=== PATIENT | male | born 1985 | race Caucasian/White ===

== ENCOUNTER 2025-01-07 15:06 | Emergency (ER) | payer OTHER, SELFPAY ==
[2025-01-07 15:11] VITALS: BP 120/85; PULSE 82; TEMP 36.9; O2SAT 98; BMI 21.8
--- NOTE | 2025-01-07 15:18 | ECG_ITS ---
[facility] Test Date: 2025-01-07 Pat Name: SUDHAKAR ACUÑA Department: Room: - Gender: Male Customer Complaint Service Supervisor: : 1985 Requested By: [id number] Order Number: [id number] Reading MD: CLAUDE BIANCHI Measurements Intervals [place] Rate: 75 P: -30107 RI: 190 QRS: 90 QRSD: 98 T: 71 QT: 318 QTc: 413 Interpretive Statements SINUS RHYTHM 51405 Nonspecific Twave abnormality, probably digitalis effect 0102 ARTIFACT PRESENT Normal ECG No previous ECG available for comparison Electronically Signed On 01-09-2025 9:50:40 EDT by CLAUDE BIANCHI
--- NOTE | 2025-01-07 15:19 | ED.GENADUL1 ---
HPI HPI - General Adult General Chief complaint: Chest Pain Stated complaint: CHEST PAIN Time Seen by Provider: 01/07/25 15:10 Source: patient Mode of arrival: walk-in Limitations: no limitations History of Present Illness HPI narrative: 39-year-old male presents for chest pain. It started about 45 minutes ago when he was sitting in class. He is staying at a drug treatment center and has been there for 45 days and has been clean for 45 days. Its on the left side of his chest and goes to the left shoulder but does not radiate anywhere else. No back pain or shortness of breath. No trauma or fever. Related Data Home Medications ?Medication ?Instructions ?Recorded ?Confirmed atorvastatin 10 mg tablet 10 mg PO HS 01/07/25 01/07/25 buprenorphine 128 mg/0.36 mL 128 mg subcut Q28D 01/07/25 01/07/25 solution,ext.rel.subcutaneous syringe (Brixadi Monthly) buspirone 15 mg tablet 7.5 mg PO BID 01/07/25 01/07/25 cariprazine 3 mg capsule (Vraylar) 3 mg PO DAILY 01/07/25 01/07/25 gabapentin 300 mg capsule 300 mg PO TID 01/07/25 01/07/25 melatonin 10 mg capsule 10 mg PO HS PRN sleep 01/07/25 01/07/25 olanzapine 5 mg tablet 5 mg PO BID PRN agotation 01/07/25 01/07/25 trazodone 100 mg tablet 100 mg PO HS 01/07/25 01/07/25 Allergies Allergy/AdvReac Type Severity Reaction Status Date / Time Penicillins Allergy Severe Rash Verified 01/07/25 15:19 haloperidol (From Haldol) AdvReac Severe muscle Verified 01/07/25 15:19 stiffness Opioid HPI Opioid Management Most Recent Opioid Data: Last Pain Scale 6 Today, 15:33 Last ED Pain Assessment Today, 15:33 Review of Systems ROS Narrative A ten point review of systems is negative except as noted above. PFSH PFSH Social History Little interest or pleasure in doing things: not at all Feeling down, depressed, or hopeless: not at all Exam Narrative Exam Narrative: Nurses note and vital signs reviewed and patient is not hypoxic. General: The patient appears well and in no apparent distress. Patient is resting comfortably on cart. Skin: Warm, dry, no pallor noted. There is no rash noted. Head: Normocephalic, atraumatic Eye: Normal conjunctiva, no drainage Ears, Nose, Mouth, and Throat: oral mucosa is moist. Nares patent. Cardiovascular: Regular Rate and Rhythm, not tachycardic. Palpation of his left chest wall seems to reproduce his symptoms. Respiratory: Patient is in no distress, no accessory muscle use, lungs are clear to auscultation, no wheezing, rales or rhonchi. Breath sounds are equal bilaterally Back: non-tender GI: Soft and nontender Musculoskeletal: The patient has no evidence of calf tenderness, no pitting edema, symmetrical pulses noted bilaterally Neurological: A&O, normal speech Psychiatric: Cooperative Constitutional Vital Signs, click to edit/add: Last Vital Signs Temp 98.4 F 01/07/25 15:11 Pulse 82 01/07/25 15:11 Resp 16 01/07/25 15:11 BP 120/85 01/07/25 15:11 Pulse Ox 99 01/07/25 15:33 O2 Del Method Room Air 01/07/25 15:33 Course Vital Signs Vital signs: Vital Signs Temperature 98.4 F 01/07/25 15:11 Pulse Rate 82 01/07/25 15:11 Respiratory Rate 16 01/07/25 15:11 Blood Pressure 120/85 01/07/25 15:11 Pulse Oximetry 98 01/07/25 15:11 Oxygen Delivery Method Room Air 01/07/25 15:11 Temperature 98.4 F 01/07/25 15:11 Pulse Rate 82 01/07/25 15:11 Respiratory Rate 16 01/07/25 15:11 Blood Pressure 120/85 01/07/25 15:11 Pulse Oximetry 99 01/07/25 15:33 Oxygen Delivery Method Room Air 01/07/25 15:33 Medical Decision Making MDM Narrative Medical decision making narrative: His workup is negative including 2 sets of troponin and D-dimer. Chest x-ray shows no evidence of pneumothorax or pneumonia. My clinical impression is that this is chest wall pain. He is being discharged. Treatment diagnosis and follow-up were discussed with the patient. Differential Diagnosis Differential Diagnosis: Myocardial infarction, PE, pneumothorax, chest wall pain Lab Data Lab results reviewed: Yes I reviewed the patient's lab results Labs: Lab Results 07/16/25 07/16/25 Range/Units 15:25 16:12 WBC 7.6 (4.0-11.0) 10^3/uL RBC 4.13 L (4.70-6.10) 10^6/uL Hgb 12.5 L (14.0-18.0) g/dL Hct 37.0 L (42.0-54.0) % MCV 89.6 (80.0-94.0) fL MCH 30.3 (25.9-34.0) pg MCHC 33.8 (29.9-35.2) g/dL RDW 12.1 (11.0-15.0) % Plt Count 262 (150-450) 10^3/uL MPV 9.1 L (9.5-13.5) fL Neut % (Auto) 75.8 H (43.0-75.0) % Lymph % (Auto) 15.2 L (20.5-60.0) % [place] % (Auto) 6.7 (1.7-12.0) % Eos % (Auto) 1.2 (0.9-7.0) % Baso % (Auto) 0.8 (0.2-2.0) % Neut # (Auto) 5.8 (1.4-6.5) 10^3/uL Lymph # (Auto) 1.2 (1.2-3.8) 10^3/uL [place] # (Auto) 0.5 (0.3-0.8) 10^3/uL Eos # (Auto) 0.1 (0.0-0.7) 10^3/uL Baso # (Auto) 0.1 (0.0-0.1) 10^3/uL Abs Immat Gran (auto) 0.02 (0.00-0.03) 10^3/uL Imm/Tot Granulo (auto) 0.3 (0.0-0.5) % D-Dimer 0.38 (<=0.59) mg/L FEU Sodium 143 (136-145) mmol/L Potassium 3.8 (3.5-5.1) mmol/L Chloride 103 (98-107) mmol/L Carbon Dioxide 29.5 (21.0-32.0) mmol/L Anion Gap 14.3 BUN 11.0 (7.0-18.0) mg/dL Creatinine 0.81 (0.70-1.30) mg/dL Est GFR ( Amer) >60 (>=60 mL/min/1.73m^2) Est GFR (Non-Af Amer) >60 (>=60 mL/min/1.73m^2) BUN/Creatinine Ratio 13.6 Glucose 108 H (74-106) mg/dL Calcium 9.4 (8.5-10.1) mg/dL Troponin I High Sens <4.0 L 4.6 (4.0-76.1) pg/mL Imaging Data Chest x-ray: Radiologist's impression: ITS Impressions Chest X-Ray 01/07/25 15:42 IMPRESSION: No acute cardiopulmonary pathology. Impression dictated by: Collin Vásquez M.D. 01/07/2025 3:53 PM Dictation Location: [employer] Electronically authenticated by: [id number] Y Date: 01/07/2025 15:53 ECG Data Attestation: I personally reviewed and interpreted this ECG as follows: (EKG on my interpretation shows large amount of artifact because of his deep brain stimulator.) Discharge Plan Discharge Chief Complaint: Chest Pain Clinical Impression: Chest pain Patient Disposition: Home, Self-Care Time of Disposition Decision: 16:48 Condition: Good Mode of Transportation: Private Vehicle Prescriptions / Home Meds: No Action atorvastatin 10 mg tablet 10 mg PO HS Brixadi 128 mg/0.36 mL solution, extended rel syringe 128 mg SUBCUT Q28D buspirone 15 mg tablet 7.5 mg PO BID gabapentin 300 mg capsule 300 mg PO TID olanzapine 5 mg tablet 5 mg PO BID PRN (Reason: agotation) Vraylar 3 mg capsule 3 mg PO DAILY trazodone 100 mg tablet 100 mg PO HS melatonin 10 mg capsule 10 mg PO HS PRN (Reason: sleep) Print Language: Vietnamese Instructions: Chest Pain (ED) Referrals: Physician,Non-Staff, MD [Primary Care Provider] - 1 week
--- OUTSIDE RECORDS SUMMARY | 2025-01-07 15:20 | XMS_ITS | Clinical Summary ---
Author Organization [facility] Address [address] [place], [place] [id number] Care Team Providers Care Core Drier Name Role Phone Unavailable Primary Care Provider Unavailabl e Allergies Active Allergy Reactions Criticality Noted Date Comments Haloperidol Other: See Comments 02/28/2017 Muscle stiffness Penicillins Rash 02/28/2017 Medications traZODone (DESYREL) 150 mg tablet Take 1 tablet by mouth daily at bedtime. 7 Active buPROPion SR (ZYBAN SR; WELLBUTRIN SR) 150 mg 12 hr tabletIndication s:Tourette's syndrome,Depress ion, unspecified depression type Take 1 tablet by mouth twice daily. 180 tablet 2 9 Active gabapentin (NEURONTIN) 300 mg capsuleIndicatio ns:Essential myoclonus Take 3 capsules by mouth three times daily for 180 days. 270 capsule 3 0 Active Additional Information Patient not taking.Reason: Other, Reported on 05/11/2020 buprenorphine-na lOXone SL (SUBOXONE) 8-2 mg subl Dissolve 1 tablet under the tongue once daily. 0 Active levETIRAcetam (KEPPRA) 1,000 mg tablet Take 1 tablet by mouth twice daily. 60 tablet 2 0 Active benzocaine-menth ol (CEPACOL SORE THROAT, PAUL-MEN,) 15-2.6 mg lozg lozenge Take 1 Lozenge by mouth every 3 hours as needed. 16 Lozenge 3 Active buPROPion XL (WELLBUTRIN XL) 150 mg 24 hr tablet Take 1 tablet by mouth once daily. 30 tablet 4 Active gabapentin (NEURONTIN) 600 mg tablet Take 2 tablets by mouth three times a day for 30 days. 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 Q1H while awake, C&DB - multimodal pain management, APMS consult - CXR PRN for change in respiratory status 01/24 - PTX more evident on interval CXR today, respiratory status stable on minimal ventilator settings - daily CXR until improvement and/or resolution Polysubstance abuse 01/25/2024 Assessment & Plan (01/25/2024 4:12 PM EDT): Historical problem, UTOX positive for benzos and amphetamines. Was found with paraphernalia on his person during trauma evaluation. Initially arrived with GCS ~5 per ED documentation, not improved with 14 mg Narcan, intubated for airway protection. 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 Resolved Problems Problem Noted Date Diagnosed Date Resolved Date Coma 01/24/2024 04/27/2024 Encounters Date Type Department Care Team Description 12/09/2024 Lab Requisition [facility] [address] [place] [address] Bethany Watson, PhD 12/09/2024 Lab Requisition [facility] [address] [place] [address] Bethany Watson, PhD 11/30/2024 10:22 AM EDT - 11/30/2024 10:51 AM EDT Emergency [facility] [address] [place] [address] Dizziness Discharge Disposition: AMA/Discontinuation of Care-Use additional discharge code 11/25/2024 6:55 PM EDT - 11/25/2024 9:20 PM EDT [facility] Dept [address] [place] [id number] Cezar Lu MD device malfunction Discharge Disposition: Home 11/25/2024 7:07 AM EDT - 11/25/2024 10:52 AM EDT [facility] [address] [place] [id number] Brannon Ly DO Dizziness head and neck pain Discharge Disposition: Home 11/25/2024 Travel 11/20/2024 6:05 PM EDT - 11/20/2024 7:30 PM EDT Emergency [facility] Emergency Dept [address] [place] [id number] Anxiety Discharge Disposition: Home 11/20/2024 1:42 PM EDT - 11/20/2024 3:36 PM EDT Emergency [facility] Emergency Dept [address] [place] [id number] Devang Nazario MD defib complaint Discharge Disposition: Home 11/20/2024 Travel from Last 3 Months Immunizations Immunization Administration Dates Next Due tuberculin skin test (TST-PP D), purified protein derivative, intradermal 12/12/2016 Social History Tobacco Use Types Packs/Day Years Used Date Smoking Tobacco: Former Cigarettes Smokeless Tobacco: Never Tobacco Cessation:Counseling Given: Not Answered Comments:10-15 cigs per day Alcohol Use Standard Drinks/Week Comments Not Currently 0 (1 standard drink = 0.6 oz pur e alcohol) [facility] Utilities Answer Date Recorded In the past 12 months has th e electric, gas, oil, or water company threatened to shut off services in your home? Patient unable to answer 01/25/2024 PHQ-2 Answer Date Recorded PHQ-2 score 6 08/28/2020 Hunger Vital Sign Answer Date Recorded Within the past 12 months, y ou worried that your food would run out before you got the money to buy more. Never true 11/25/2024 Within the past 12 months, t he food you bought just didn't last and you didn't have money to get more. Patient unable to answer 11/25/2024 PRAPARE - Transportation Answer Date Re corded In the past 12 months, has l ack of transportation kept you from medical appointments or from getting medications? Patient unable to answer 01/25/2024 In the past 12 months, has l ack of transportation kept you from meetings, work, or from getting things needed for daily living? Patient unable to answer 01/25/2024 Housing Stability Vital Sign Answer Greg e Recorded In the last 12 months, was t here a time when you were not able to pay the mortgage or rent on time? Patient unable to answer 01/25/2024 Number of Places Lived in the Last Year Not on f ile 01/25/2024 In the last 12 months, was t here a time when you did not have a steady place to sleep or slept in a long-term (including now)? Patient unable to answer 01/25/2024 Area Deprivation Index Answer Date Pavan rded National Score (1-100), lower number is lower ri sk 100 11/21/2024 State Score (1-10), lower number is lower risk 1 0 11/21/2024 Data from: https://www.neighborhoodatlas.medicine.[facility].edu/. Last address used for calculation [address] 11/21/2024 Sex and Gender Information Value Date Recorded Sex Assigned at Male 10/19/2018 9:02 PM EDT Legal Sex Male 9:23 AM EST Gender Identity Male 10/19/2018 9:02 PM EDT Sexual Orientation Straight 09/27/2022 10 :36 AM EDT Last Filed Vital Signs Vital Sign Reading Time Taken Comments Blood Pressure 135/75 11/25/2024 9:18 PM EDT Pulse 88 11/25/2024 9:18 PM EDT Temperature 36.7 C (98 F) 11/25/2024 7:02 PM EDT Respiratory Rate 17 11/25/2024 9:18 PM EDT Oxygen Saturation 98% 11/25/2024 9:18 PM EDT Inhaled Oxygen Concentration - - Weight 66.1 kg (145 lb 11.2 oz) 11/25/2024 6:58 AM EDT Height 185.4 cm (6' 1 ) 11/25/2024 6:58 AM EDT Body Mass Index 19.22 11/25/2024 6:58 AM EDT Plan of Treatment Health Maintenance Due Date Last Done Comments Anxiety Screening 2003 Depression Screening 2003 HIV Screening 2003 Covid-19 Vaccine (3 - 2023-2 5 season) 2024 03/28/2021, 11/24/2020 Influenza Vaccine (#1) 2025 03/14/2023, 2017 Lipid Screening 12/14/2027 12/13/2022, 07/0 10/2021, 12/15/2021 DTaP,Tdap,Td Vaccine (3 - Td or Tdap) 05/27/2032 05/27/2022, 12/15/2021 Hepatitis A Vaccine Completed 12/15/2021, Pneumococcal Vaccine Completed 12/15/2021, 05/13/20 13 Hepatitis C Screening Completed 12/08/2024 , 07/01/2021, 03/30/2021, Additional history exists Procedures Procedure Name Priority Date/Time Associated Diagnosis Comments BLOOD TB SCREEN, INCUBATED Routine 12/08/2024 11:43 AM EDT HEPATITIS C VIRUS (HCV) RNA, QUANTITATIVE PCR, PLASMA/SERUM Routine 12/08/2024 11:13 AM EDT CBC + DIFF STAT 11/25/2024 8:15 AM EDT COMPREHENSIVE METABOLIC PANEL STAT 11/25/2024 8:15 AM EDT EKG Routine 11/25/2024 8:[address] BRAIN WO IVCON STAT 11/25/2024 8:0 0 AM EDT ECG COMPLETE STAT 11/25/2024 7:39 AM EDT MAGNESIUM BLD STAT 11/20/2024 1:55 PM EDT COMPREHENSIVE METABOLIC PANEL STAT 11/20/2024 1:55 PM EDT CBC + DIFF STAT 11/20/2024 1:55 PM EDT from Last 3 Months Results * BLOOD TB SCREEN, INCUBATED (12/08/2024 11:43 AM EDT) TB Nil 0.09 <=8.00 IU/mL 12/11/2024 11:56 AM EDT [facility] TB1 Ag minus Nil 0.07 <0.35 IU/mL 12/11/2024 11:56 AM EDT [facility] TB2 Ag minus Nil 0.06 <0.35 IU/mL 12/11/2024 11:56 AM EDT [facility] TB Result Negative 12/11/2024 11:56 AM EDT [facility] Mitogen minus Nil >9.91 >=0.50 IU/mL 12/11/2024 11:56 AM EDT [facility] TB Gamma Interpretation Infection with M. tuberculosis complex is unlikely. If latent tuberculosis infection is highly suspected, a negative result does not rule out the infection. Specimens from immunocompromised patients and those <5 years of age may show false negative results. In case of a contact investigation, please repeat 8-12 weeks after a known exposure. 12/11/2024 11:56 AM EDT [facility] Blood BLOOD SPECIMEN / Unknown 12/08/2024 11:43 AM EDT 12/10/2024 9:11 PM EDT us Bethany Watson PhD LABORATORY Final Resul t Performing Organization Address [facility] Co de Phone Number [facility] [address] [facility] [place] [address], [place] * HEPATITIS C VIRUS (HCV) RNA, QUANTITATIVE PCR, PLASMA/SERUM (12/08/2024 11:13 AM EDT) [facility] HCV RNA Not detected Not detected [address] 12/10/2024 10:10 AM EDT [facility] Blood BLOOD SPECIMEN / Unknown 12/08/2024 11:13 AM EDT 12/09/2024 11:39 PM EDT [facility] - 12/10/2024 10:10 AM EDT mamie HCV is an in vitro nucleic acid amplification test for both the detection and quantitation of hepatitis C virus RNA, in human EDTA plasma or serum, of HCV antibody positive or HCV-infected individuals. The linear range of the assay is 15 to 100,000,000 IU/mL (1.18 - 8.00 log IU/mL). The lower limit of detection of the assay is 15 IU/mL. us Bethany Watson PhD LABORATORY Final Resul t Performing Organization Address [facility] Co de Phone Number [facility] [address] [place] [id number], [place] * (ABNORMAL) COMPREHENSIVE METABOLIC PANEL (11/25/2024 8:15 AM EDT) Only the most recent of2 resultswithin the time period is included. [facility] Protein, Total 7.2 6.3 - 8.0 g/dL 11/25/2024 8:50 AM EDT [facility] Albumin 4.5 3.9 - 4.9 g/dL 11/25/2024 8:50 AM EDT [facility] Calcium, Total 9.3 8.5 - 10.2 mg/dL 11/25/2024 8:50 AM EDT [facility] Bilirubin, Total <0.2(L) 0.2 - 1.3 mg/dL 11/25/2024 8:50 AM EDT [facility] Alkaline Phosphatase 58 38 - 113 U/L 11/25/2024 8:[facility] AST 28 14 - 40 U/L 11/25/2024 8:[facility] ALT 21 10 - 54 U/L 11/25/2024 8:50 [facility] Glucose 104(H) 74 - 99 mg/dL 11/25/2024 8:50 AM [facility] Comment: The [place] Diabetes Association (ADA) provides guidance for cutoff values for fasting glucose and random glucose. The ADA defines fasting as no caloric intake for at least 8 hours. Fasting plasma glucose results between 100 to 125 mg/dL indicate increased risk for diabetes (prediabetes). Fasting plasma glucose results greater than or equal to 126 mg/dL meet the criteria for diagnosis of diabetes. In the absence of unequivocal hyperglycemia, results should be confirmed by repeat testing. In a patient with classic symptoms of hyperglycemia or hyperglycemic crisis, random plasma glucose results greater than or equal to 200 mg/dL meet the criteria for diagnosis of diabetes. Reference: Standards of Medical Care in Diabetes 2016, [place] [employer] Association. Diabetes Care. 2016.39(Suppl 1). BUN 9 9 - 24 mg/dL 11/25/2024 8:50 AM [facility] Creatinine 0.78 0.73 - 1.22 mg/dL 11/25/2024 8:50 AM [facility] Sodium 139 136 - 144 mmol/L 11/25/2024 8:50 AM [facility] Potassium 4.5 3.7 - 5.1 mmol/L 11/25/2024 8:50 AM [facility] Chloride 101 98 - 107 mmol/L 11/25/2024 8:50 AM [facility] CO2 30 22 - 30 mmol/L 11/25/2024 8:50 AM [facility] Anion Gap 8 8 - 15 mmol/L 11/25/2024 8:50 AM [facility] Estimated Glomerular Filtration Rate 116 >=60 mL/min/1. 73m 11/25/2024 8:50 AM [facility] Comment:Estimated Glomerular Filtration Rate (eGFR) is calculated using the 2020 CKD-EPI creatinine equation. This equation utilizes serum creatinine, sex, and age as parameters. The creatinine assay has traceable calibration to isotope dilution- mass spectrometry. Refer to KDIGO guidelines for clinical interpretation. In patients with unstable renal function, e.g. those with acute kidney injury, the eGFR may not accurately reflect actual GFR. Blood BLOOD SPECIMEN / Unknown Venipuncture / Unknown 11/25/2024 8:15 AM EDT 11/25/2024 8:17 AM EDT Brannon Ly DO LABORATORY Final Result [facility] [address] [place] [id number], * (ABNORMAL) COMPLETE BLOOD COUNT AND DIFFERENTIAL (11/25/2024 8:15 AM EDT) Only the most recent of2 resultswithin the time period is included. WBC 6.88 3.70 - 11.00 k/uL 11/25/2024 8:20 AM EDT [facility] RBC 4.43 4.20 - 6.00 m/uL 11/25/2024 8:20 AM EDT [facility] Hemoglobin 13.0 13.0 - 17.0 g/dL 11/25/2024 8:20 AM EDT [facility] Hematocrit 39.1 39.0 - 51.0 % 11/25/2024 8:20 AM EDT [facility] MCV 88.3 80.0 - 100.0 fL 11/25/2024 8:20 AM EDT [facility] MCH 29.3 26.0 - 34.0 pg 11/25/2024 8:20 AM EDT [facility] MCHC 33.2 30.5 - 36.0 g/dL 11/25/2024 8:20 AM EDT [facility] RDW-CV 12.4 11.5 - 15.0 % 11/25/2024 8:20 AM EDT [facility] Platelet Count 260 150 - 400 k/uL 11/25/2024 8:20 AM EDT [facility] MPV 8.8(L) 9.0 - 12.7 fL 11/25/2024 8:20 AM EDT [facility] Neutrophils % 79.5 % 11/25/2024 8:20 AM EDT [facility] Abs Neut 5.47 1.45 - 7.50 k/uL 11/25/2024 8:20 AM EDT [facility] Lymphocytes % 12.2 % 11/25/2024 8:20 AM EDT [facility] Abs Lymph 0.84(L) 1.00 - 4.00 k/uL 11/25/2024 8:20 AM EDT [facility] Monocytes % 6.4 % 11/25/2024 8:20 AM EDT [facility] Abs Jenkins 0.44 <0.87 k/uL 11/25/2024 8:20 AM EDT [facility] Eosinophils % 1.0 % 11/25/2024 8:20 AM EDT [facility] Abs Eosin 0.07 <0.46 k/uL 11/25/2024 8:20 AM EDT [facility] Basophils % 0.6 % 11/25/2024 8:20 AM EDT [facility] Abs Baso 0.04 <0.11 k/uL 11/25/2024 8:20 AM EDT [facility] Immature Granulocytes % 0.3 % 11/25/2024 8:20 AM EDT [facility] Abs Immature Gran <0.03 <0.10 k/uL 11/25/2024 8:20 AM EDT [facility] NRBC 0.0 /100 WBC 11/25/2024 8:20 AM EDT [facility] Absolute nRBC <0.01 <0.01 k/uL 11/25/2024 8:20 AM EDT [facility] Diff Type Auto 11/25/2024 8:20 AM EDT [facility] Blood BLOOD SPECIMEN / Unknown Venipuncture / Unknown 11/25/2024 8:15 AM EDT 11/25/2024 8:17 AM EDT us Brannon Ly DO LABORATORY Final Result [facility] [address] [place] [address], [place] * EKG (11/25/2024 8:11 AM EDT) Ventricular Rate 60 BPM [facility] Atrial Rate 60 BPM [facility] P-R Interval 144 ms [facility] QRS Duration 104 ms [facility] QT Interval 421 ms [facility] QTC Calculation (Bazett) 421 ms [facility] Calculated P [place] 40 degrees [facility] Calculated R [place] 85 degrees [facility] Calculated T [place] 67 degrees [facility] 11/25/2024 8:11 AM EDT Impressions [facility] - 11/25/2024 8:43 AM EDT Sinus rhythm ST elev, probable normal early repol pattern No Stemi Normal ECG Confirmed by BRANNON LY DO ([id number]) on 11/25/2024 8:43:01 AM Narrative [facility] - 11/25/2024 8:43 AM EDT NAME : SUDHAKAR ESCOBAR PID : [id number] : 1985 Gender : Male Race : ORD : Procedure Date : Nov 25 2024 08:11:09 Edit Date : Nov 25 2024 08:43:08 Diagnosis: Sinus rhythm ST elev, probable normal early repol pattern No Stemi Normal ECG Confirmed by BRANNON LY DO ([id number]) on 11/25/2024 8:43:01 AM Test Reason : Location : 18 : ED -[id number] Overread By : BRANNON LY DO Edited By : BRANNON LY DO Referred By : , Acquired by : , us [facility] Provider C[facility]Y_[place] Final Result [facility] [address] [place], [place] [id number] * CT BRAIN WO IVCON (11/25/2024 8:00 AM EDT) Anatomical Region Laterality Modality Head Computed Tomogra phy 11/25/2024 8:00 AM EDT Impressions 11/25/2024 8:23 AM EDT IMPRESSION: No acute intracranial process. Services Manager: GAUTAM Transcribe Date/Time: Nov 25 2024 8:18A Dictated by : ELO SCHWARTZ MD This examination was interpreted and the report reviewed and electronically signed by: ELO SCHWARTZ MD on Nov 25 2024 8:21AM EST Narrative 11/25/2024 8:23 AM EDT * * *Final Report* * * DATE OF EXAM: Nov 25 2024 8:00AM [facility] 0504 - CT BRAIN WO IVCON / PROCEDURE REASON: Headache, sudden, severe * * * * Physician Interpretation * * * * EXAMINATION: CT BRAIN WO IVCON CLINICAL HISTORY: Headache TECHNIQUE: Serial axial images without IV contrast were obtained from the vertex to the foramen magnum. MQ: CTBWO_3 CT Radiation dose: Integrated Dose-Length Product (DLP) for this visit = 779 mGy*cm CT Dose Reduction Employed: Automated exposure control(AEC) and iterative recon COMPARISON: 01/24/2024 RESULT: Post-operative change: Bifrontal deep brain stimulation devices with leads terminating in the region of the bilateral thalami, unchanged. Acute change: No evidence of an acute infarct or other acute parenchymal process. Hemorrhage: No evidence of acute intracranial hemorrhage. ECASS hemorrhagic transformation score: Not Applicable Mass Lesion / Mass Effect: There is no evidence of an intracranial mass or extraaxial fluid collection. No significant mass effect. Chronic change: None apparent. Parenchyma: There is no significant volume loss. The brain parenchyma is otherwise within normal limits for age. Ventricles: The ventricles are within normal limits of size and configuration for age. Paranasal sinuses and skull base: The visualized paranasal sinuses are grossly clear. The skull base and imaged soft tissues are unremarkable. Localizer images: No additional findings. Procedure Note Provider, [facility] [place] - 11/25/2024 * * *Final Report* * * DATE OF EXAM: Nov 25 2024 8:00AM [facility] 0504 - CT BRAIN WO IVCON / PROCEDURE REASON: Headache, sudden, severe * * * * Physician Interpretation * * * * EXAMINATION: CT BRAIN WO IVCON CLINICAL HISTORY: Headache TECHNIQUE: Serial axial images without IV contrast were obtained from the vertex to the foramen magnum. MQ: CTBWO_3 CT Radiation dose: Integrated Dose-Length Product (DLP) for this visit = 779 mGy*cm CT Dose Reduction Employed: Automated exposure control(AEC) and iterative recon COMPARISON: 01/24/2024 RESULT: Post-operative change: Bifrontal deep brain stimulation devices with leads terminating in the region of the bilateral thalami, unchanged. Acute change: No evidence of an acute infarct or other acute parenchymal process. Hemorrhage: No evidence of acute intracranial hemorrhage. ECASS hemorrhagic transformation score: Not Applicable Mass Lesion / Mass Effect: There is no evidence of an intracranial mass or extraaxial fluid collection. No significant mass effect. Chronic change: None apparent. Parenchyma: There is no significant volume loss. The brain parenchyma is otherwise within normal limits for age. Ventricles: The ventricles are within normal limits of size and configuration for age. Paranasal sinuses and skull base: The visualized paranasal sinuses are grossly clear. The skull base and imaged soft tissues areunremarkable. Localizer images: No additional findings. IMPRESSION IMPRESSION: No acute intracranial process. Services Manager: GAUTAM Transcribe Date/Time: Nov 25 2024 8:18A Dictated by : ELO SCHWARTZ MD This examination was interpreted and the report reviewed and electronically signed by: ELO SCHWARTZ MD on Nov 25 2024 8:21AM EST Brannon Ly DO [facility] Final Result * MAGNESIUM (11/20/2024 1:55 PM EDT) Magnesium 1.8 1.7 - 2.3 mg/dL 11/20/2024 2:29 PM EDT [facility] Blood BLOOD SPECIMEN / Unknown Venipuncture / Unknown 11/20/2024 1:55 PM EDT 11/20/2024 2:12 PM EDT Terence Polanco MD LABORATORY Final Result [facility] [address] [place] [address], from Last 3 Months Insurance [place]ICAID [place]
--- OUTSIDE RECORDS SUMMARY | 2025-01-07 15:20 | XMS_ITS | Encounter Summary ---
Author Organization [facility] Address [address] [place] [address] Phone Care Team Providers Care Powder Mixer Name Role Phone Dedra Mott MD Primary Care Provider + [phone] Rosalind Pedersen MD Unavailable [phone] Monica Damian RECEIVER DISPATCHER-FITNESS SERVICES MANAGER Unavailable Monica Damian RECEIVER DISPATCHER-FITNESS SERVICES MANAGER Unavailable Humberto Wong RN Unavailable Unavailable Humberto Wong RN Unavailable Unavailable Laura Urrutia RN Unavailable Unavailabl e Laura Urrutia RN Unavailable Unavailabl e Encounter Details Date Type Department Care Team (Late st Contact Info) Description 10/27/2023 Patient Risk Score ACO Care Management [address] [place] [phone] Social History Tobacco Use Types Packs/Day Years Used Date Smoking Tobacco: Never Smokeless Tobacco: Never PHQ-2 Answer Date Recorded Patient Health Questionnaire-2 Score 2 06/21/2023 Sex and Gender Information Value Date Recorded Sex Assigned at Male 03/04/2024 3:27 AM EDT Legal Sex Male 1:26 PM EST Gender Identity Male 03/04/2024 3:27 AM EDT Sexual Orientation Not on file COVID-19 Exposure Response Date Recorded In the last 10 days, have yo u been in contact with someone who was confirmed or suspected to have Coronavirus/COVID-19? Unable to assess 10/04/2023 2:12 AM EDT documented as of this encounter Plan of Treatment Upcoming Encounters Date Type Department Care Team (Late st Contact Info) Description 06/11/2025 3:00 PM EST Office Visit [facility] [address] [place] [phone] Kaden Diaz MD [address] [place] [address] documented as of this encounter Visit Diagnoses Not on filedocumented in this encounter Additional Health Concerns Assessment Noted Time A fall risk assessment has been complete d for the patient 06/21/2023 2:31 PM EST documented as of this encounter Care Teams Powder Mixer Relationship Specialty Start Date End Date Dedra Mott MD [address] [place] [address] PCP - General 05/29/22 Monica Damian, RECEIVER DISPATCHER-FITNESS SERVICES MANAGER [id number] [facility] Department [place] [address] PCP - [facility] Medicaid PCP 12/24/23 4 Monica Damian RECEIVER DISPATCHER-FITNESS SERVICES MANAGER [address] [facility] Department [place] [address] PCP - [facility] PCP 05/25/24 Rosalind Pedersen MD [address] [place] [address] Consulting Physician Neurology 04/02/23 Humberto Wong, experiential therapistMass Communications Instructor 11/19/24 11/19/24 Humberto Wong, experiential therapistMass Communications Instructor 11/24/24 11/24/24 Laura Urrutia, experiential therapistMass Communications Instructor 11/26/24 11/26/24 Laura Urrutia, experiential therapistMass Communications Instructor 12/01/24 12/01/24 documented as of this encounter
--- OUTSIDE RECORDS SUMMARY | 2025-01-07 15:20 | XMS_ITS | Encounter Summary ---
Author Organization [facility] Address [address] [place] [address] Phone Care Team Providers Care Computing Tutor Name Role Phone Dedra Mott MD Primary Care Provider [phone] Rosalind Pedersen MD Unavailable [phone] Peña Duncan BUFFING WHEEL RAKER-BILLET INSPECTOR Unavailable [phone] Monica Damian N BUFFING WHEEL RAKER-BILLET INSPECTOR Unavailable Monica Damian N BUFFING WHEEL RAKER-BILLET INSPECTOR Unavailable Monica Damian N BUFFING WHEEL RAKER-BILLET INSPECTOR Unavailable Humberto Wong RN Unavailable Unavailable Humberto Wong RN Unavailable Unavailable Laura Urrutia RN Unavailable Unavailabl e Laura Urrutia RN Unavailable Unavailabl e Encounter Details Date Type Department Care Team (Late st Contact Info) Description 03/23/2023 Scanned Document [facility] [address] [place] [address] Conversion, Onbase Social History Tobacco Use Types Packs/Day Years Used Date Smoking Tobacco: Never Assessed Sex and Gender Information Value Date Recorded Sex Assigned at Male 03/04/2024 3:27 AM EDT Legal Sex Male 1:26 PM EST Gender Identity Male 03/04/2024 3:27 AM EDT Sexual Orientation Not on file documented as of this encounter Plan of Treatment Upcoming Encounters Date Type Department Care Team (Late st Contact Info) Description 06/11/2025 3:00 PM EST Office Visit [facility] [address] [facility] [address] [place] [phone] Kaden Diaz MD [address] [place] [facility] [address] [place] [address] documented as of this encounter Visit Diagnoses Not on filedocumented in this encounter Additional Health Concerns Infection Onset Date Last Indicated Resolved Time COVID-19 Rule-Out 06/28/2023 06/28/2023 06/28/2023 6:01 AM EST RSV Rule-out 06/28/2023 06/28/2023 06/28/2023 6:01 AM EST COVID-19 Rule-Out 09/11/2023 09/11/2023 09/11/2023 6:38 AM EDT documented as of this encounter Care Teams Computing Tutor Relationship Specialty Start Date End Date Dedra Mott MD [address] [id number] PCP - General 05/29/22 Peña Duncan APRN-BILLET INSPECTOR [address] [facility] Department [place] [address] PCP - [facility] Medicaid PCP 03/25/23 Monica Damian BUFFING WHEEL RAKER-BILLET INSPECTOR [address] [facility] Department of Neurological [place] [address] PCP - [facility] PCP 06/25/2309/22 Monica Damian BUFFING WHEEL RAKER-BILLET INSPECTOR [address] [facility] Department of Neurological [place] [address] PCP - [facility] Medicaid PCP 12/24/23 4 Monica Damian, BUFFING WHEEL RAKER-BILLET INSPECTOR [address] [facility] Department of Neurological [place] [address] PCP - [facility] PCP 05/25/24 Rosalind Pedersen MD [address] [place] [address] Consulting Physician Neurology 04/02/23 Humberto Wong, investigation division sergeantInsurance Billing Specialist 11/19/24 11/19/24 Humberto Wong, investigation division sergeantInsurance Billing Specialist 11/24/24 11/24/24 Laura Urrutia, investigation division sergeantInsurance Billing Specialist 11/26/24 11/26/24 Laura Urrutia, investigation division sergeantInsurance Billing Specialist 12/01/24 12/01/24 documented as of this encounter
--- OUTSIDE RECORDS SUMMARY | 2025-01-07 15:20 | XMS_ITS | Encounter Summary ---
Author Organization [facility] Address [address] [place] [address] Phone Care Team Providers Care Evidence Custodian Name Role Phone Dedra Mott MD Primary Care Provider + [phone] Peña Duncan LICENSING OFFICER-MACHINE BOOKKEEPER Unavailable [phone] Rosalind Pedersen MD Unavailable [phone] Peña Duncan LICENSING OFFICER-MACHINE BOOKKEEPER Unavailable [phone] Monica Damian LICENSING OFFICER-MACHINE BOOKKEEPER Unavailable Monica Damian LICENSING OFFICER-MACHINE BOOKKEEPER Unavailable Monica Damian LICENSING OFFICER-MACHINE BOOKKEEPER Unavailable Humberto Wong RN Unavailable Unavailable Humberto Wong RN Unavailable Unavailable Laura Urrutia RN Unavailable Unavailabl e Laura Urrutia RN Unavailable Unavailabl e Encounter Details Date Type Department Care Team (Late st Contact Info) Description 05/29/2022 Orders Only [facility] [address] [place] [address] Conversion, Onbase Social History Tobacco Use Types [...] Description 06/11/2025 3:00 PM EST Office Visit [facility] [address] [place] [address] [phone] Kaden Diaz MD [address] [place] [address] [address] Scheduled Orders Name Type Priority Associated Diagnoses Orde r Schedule MISCELLANEOUS GENETICS TEST Lab Ordered: 05/29/2022 documented as of this encounter Visit Diagnoses Not on filedocumented in this encounter Additional Health Concerns Infection Onset Date Last Indicated Resolved Time COVID-19 Rule-Out 06/28/2023 06/28/2023 06/28/2023 6:01 AM EST RSV Rule-out 06/28/2023 06/28/2023 06/28/2023 6:01 AM EST COVID-19 Rule-Out 09/11/2023 09/11/2023 09/11/2023 6:38 AM EDT documented as of this encounter Care Teams Evidence Custodian Relationship Specialty Start Date End Date Dedra Mott MD [address] [place] [address] PCP - General 05/29/22 Peña Duncan LICENSING OFFICER-MACHINE BOOKKEEPER [address] [facility] Department [place] [address] PCP - [facility] PCP 11/23/2202/22 Peña Duncan LICENSING OFFICER-MACHINE BOOKKEEPER [address] [facility] Department [place] [address] PCP - [employer] Medicaid PCP 03/25/23 Monica Damian LICENSING OFFICER-MACHINE BOOKKEEPER [address] Department [place] [address] PCP - [facility] PCP 06/25/2309/22 Monica Damian APRN-MACHINE BOOKKEEPER [address] Department [place] [address] PCP - [facility] Medicaid PCP 12/24/23 Monica Damian, LICENSING OFFICER-MACHINE BOOKKEEPER [address] Department [place] [address] PCP - [facility] PCP 05/25/24 [place] [address] [facility] Department [place] [address] Consulting Physician Neurology 04/02/23 Humberto Wong, civil preparedness coordinatorSliver Lapper 11/19/24 11/19/24 Humberto Wong RN Care Sliver Lapper 11/24/24 11/24/24 Laura Urrutia, civil preparedness coordinatorSliver Lapper 11/26/24 11/26/24 Laura Urrutia, civil preparedness coordinatorSliver Lapper 12/01/24 12/01/24 documented as of this encounter
--- OUTSIDE RECORDS SUMMARY | 2025-01-07 15:20 | XMS_ITS | Encounter Summary ---
Author Organization [facility] Address [address] [place] [address] Phone Care Team Providers Care Insulation Extruder Operator Name Role Phone Dedra Mott MD Primary Care Provider + Dedra Mott MD Primary Care Provider + Peña Duncan ASSAYER-BOARDING ROOM FIXER Unavailable [phone] Rosalind Pedersen MD Unavailable [phone] Peña Duncan ASSAYER-BOARDING ROOM FIXER Unavailable [phone] Monica Damian ASSAYER-BOARDING ROOM FIXER Unavailable Monica Damian ASSAYER-BOARDING ROOM FIXER Unavailable + Monica Damian ASSAYER-BOARDING ROOM FIXER Unavailable Humberto Wong RN Unavailable Unavailable Humberto Wong RN Unavailable Unavailable Laura Urrutia RN Unavailable Unavailabl e Laura Urrutia RN Unavailable Unavailabl e Encounter Details Date Type Department Care Team (Late st Contact Info) Description 05/09/2022 Scanned Document [facility] [address] [facility] 5[address] [place] [address] [place] [address] [place] [address] Social History Tobacco Use Types Packs/Day Years [...] Description 06/11/2025 3:00 PM EST Office [place] [address] [place] [address] [place] [phone] Kaden Diaz MD [facility] [address] [place] [address] [place] [address] documented as of this encounter Visit Diagnoses Not on filedocumented in this encounter Additional Health Concerns Infection Onset Date Last Indicated Resolved Time COVID-19 Rule-Out 06/28/2023 06/28/2023 06/28/2023 6:01 AM EST RSV Rule-out 06/28/2023 06/28/2023 06/28/2023 6:01 AM EST COVID-19 Rule-Out 09/11/2023 09/11/2023 09/11/2023 6:38 AM EDT documented as of this encounter Care Teams Insulation Extruder Operator Relationship Specialty Start Date End Date Dedra Mott MD [address] [place] [address] PCP - General 05/29/22 Dedra Mott MD [address] [place] [address] PCP - General 05/27/22 05/28/22 Peña uDncan, ASSAYER-BOARDING ROOM FIXER [address] [facility] [place] [address] PCP - [facility]unice ROWE PCP 11/23/2202/22 Peña Duncan, ASSAYER-BOARDING ROOM FIXER [address] [place] [address] PCP - [facility] Medicaid PCP 03/25/23 Monica Damian ASSAYER-BOARDING ROOM FIXER [address] Department [place] [address] [facility] - [facility] 06/25/2309/22 Monica Damian ASSAYER-BOARDING ROOM FIXER [address] Department [place] [address] PCP - [facility] Medicaid PCP 12/24/23 4 Monica Damian, ASSAYER-BOARDING ROOM FIXER [address] Department [place] [address] [facility] 05/25/24 [place] [address] [facility] [place] [address] Consulting Physician Neurology 04/02/23 Humberto Wong, boilers inspectorCombined Rail Operator 11/19/24 11/19/24 Humberto Wong, boilers inspectorCombined Rail Operator 11/24/24 11/24/24 Laura Urrutia, boilers inspectorCombined Rail Operator 11/26/24 11/26/24 Laura Urrutia, boilers inspectorCombined Rail Operator 12/01/24 12/01/24 documented as of this encounter
--- OUTSIDE RECORDS SUMMARY | 2025-01-07 15:20 | XMS_ITS | Clinical Summary ---
Author Organization [facility] Address [address] [place] [address] Phone Care Team Providers Care Embedded Software Manager Name Role Phone Dedra Mott MD Primary Care Provider [phone] Rosalind Peedrsen MD Unavailable [phone] Monica Damian COAT FITTER-SENIOR INFORMATION SYSTEMS ARCHITECT Unavailable Allergies Active Allergy Reactions Criticality Noted Date Comments Haloperidol Myalgia Low 02/28/2017 Penicillins Rash Low 03/06/2005 Medications ibuprofen 400 mg tablet Take 1 tablet (400 mg) by mouth every 6 hours if needed (pain). Active naloxone (Narcan) 4 mg/0.1 mL nasal spray 1 spray (4 mg). 0 Active buPROPion XL (Wellbutrin XL) 150 mg 24 hr tablet Take 3 tablets (450 mg) by mouth once daily in the morning. 3 Active buprenorphine ER (Sublocade) 300 mg/1.5mL injection Inject 1.5 mL (1 each) under the skin every 30 (thirty) days. Active gabapentin (Neurontin) 300 mg capsuleIndication s:Myoclonus dystonia Take 3 capsules (900 mg) by mouth 3 times a day. 270 capsule 4 5 026 Active cholecalciferol (Vitamin D3) 1,250 mcg (50,000 unit) tabletIndications :Vitamin D deficiency Take 1 tablet (50,000 Units) by mouth every 7 days. 12 tablet 5 Active Additional Information Patient not taking.Informant: Self, Reported on 11/22/2024 atorvastatin (Lipitor) 10 mg tablet Take 1 tablet (10 mg) by mouth once daily. 5 Active hydrOXYzine HCL (Atarax) 25 mg tablet Take 1-2 tablets by mouth every 6 hours as needed for anxiety or sleep. 5 Active Daily-Karine, with folic acid, 400 mcg tablet Take 1 tablet by mouth once daily. 5 Active nicotine (Nicoderm CQ) 21 mg/[address] 1 patch on the skin once every 24 hours. 5 025 Active QUEtiapine (SEROquel) 25 mg tablet Take 1 tablet (25 mg) by mouth twice a day. 5 Active traZODone (Desyrel) 100 mg tablet Take 1 tablet (100 mg) by mouth once daily at bedtime. 5 Active ARIPiprazole (Abilify) 5 mg tabletIndications :Psychosis, unspecified psychosis type (Multi),Auditory hallucination Take 1 tablet (5 mg) by mouth once daily. 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 Myoclonus 03/22/2023 Major depressive disorder in partial remission 0 02/09/2022 Hepatitis C virus infection cured after antiviral drug therapy 12/15/2021 Opioid dependence on agonist therapy (Multi) Chronic hepatitis C without hepatic coma (Multi) 07/22/2019 Spinal stenosis of cervical region 03/31/2019 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 Numbness and tingling of left arm and leg 2017 Tourettes disorder 04/10/2011 Encounters Date Type Department Care Team Description 12/26/2024 Patient Risk Score ACO Care Management [address] [place] [address] 12/05/2024 Patient Outreach ACO Care Management [address] [facility] [address] [facility] [place] [address] Janice Heller RN 12/04/2024 1:00 PM EDT Procedure Visit [facility] [address] [facility] 5th [place] [address] Rosalind Pedersen MD Psychosis, unspecified psychosis type (Multi) (Primary Dx); Myoclonus dystonia; Auditory hallucination 12/04/2024 7:02 AM EDT - 12/04/2024 12:50 PM EDT Emergency [facility] Emergency Medicine [address] [place] [address] Aryan Brink MD Fall, initial encounter (Primary Dx); S/P deep brain stimulator placement Discharge Disposition: Home 12/04/2024 2:10 AM EDT Clinical Support [facility] Emergency Medicine [address] [place] [address] 12/03/2024 2:38 PM EDT - 12/03/2024 7:12 PM EDT Emergency [facility] Emergency Medicine [address] [place] [address] Aditya Mijares MD Acute nonintractable headache, unspecified headache type (Primary Dx); Myoclonus Discharge Disposition: Home 12/03/2024 Travel 12/01/2024 Patient Outreach ACO Care Management [address] [facility] [address] [place] [address] Laura Urrutia RN 11/27/2024 Patient Outreach ACO Care Management [address] [facility] [address] [place] [address] Janice Heller RN 11/26/2024 Patient Risk Score ACO Care Management [address] [place] [address] 11/24/2024 12:50 PM EDT Clinical Support [facility] Emergency Medicine [address] [place] [address] 11/24/2024 12:25 PM EDT - 11/24/2024 2:59 PM EDT Emergency [facility] Emergency Medicine [address] [place] [address] Karolina Salamanca DO Chest pain, unspecified type (Primary Dx) Discharge Disposition: Home 11/24/2024 [facility] Outreach [facility] [facility] [address] [place] [address] Humberto Wong RN 11/23/2024 8:22 PM EDT - 11/24/2024 12:09 AM EDT Emergency [facility] Emergency Medicine [address] [place] [address] Monica Fisher MD Ross, Bryan J, MD Palpitation (Primary Dx) Discharge Disposition: Home 11/23/2024 Travel 11/22/2024 9:45 AM EDT Clinical Support [facility] Emergency Medicine [address] [place] [address] 11/22/2024 9:34 AM EDT - 11/23/2024 2:01 PM EDT Hospital Encounter [facility] [address] [address] [address] [place] [address] Oscar Duque DO Parikh, Melanie, MD Luk, Jeffrey H, MD Palpitations (Primary Dx) Discharge Disposition: Home 11/21/2024 11:29 AM EDT - 11/21/2024 1:55 PM EDT Emergency [facility] Emergency Medicine [address] [place] [address] Cabrera Mello MD Lower abdominal pain (Primary Dx) Discharge Disposition: Home 11/21/2024 3:05 AM EDT Clinical Support [facility] Emergency Medicine [address] [place] [address] 11/21/2024 2:45 AM EDT Clinical Support [facility] Emergency Medicine [address] [place] [address] 11/21/2024 2:00 AM EDT - 11/21/2024 6:01 AM EDT Emergency [facility] Emergency Medicine [address] [place] [address] Ike Bradshaw DO Chest pain, unspecified type (Primary Dx) Discharge Disposition: Home 11/21/2024 12:40 AM EDT Clinical Support [facility] Emergency Medicine [address] [place] [address] 11/21/2024 Travel 11/20/2024 Patient Outreach ACO Care Management [address] [facility] [place] [address] Janice Heller RN 11/20/2024 Telephone [facility] [address] [place] [address] Larisa Dale 11/19/2024 Patient Outreach ACO Care Management [address] [facility] [place] [address] Humberto Wong, FELA 11/18/2024 Clinical Support [facility] Emergency Medicine [address] [place] [address] 11/17/2024 11:06 PM EDT - 11/18/2024 5:33 AM EDT Emergency [facility] Emergency Medicine [address] [place] [address] Nelsy Good MD Faryar, Kiran A, MD MPH Hypokalemia (Primary Dx); Muscle spasm; Dehydration Discharge Disposition: Home 11/17/2024 Travel 10/27/2024 1:00 PM EDT Office Visit [facility] [address] [facility] 5th [place] [address] Monica Damian, COAT FITTER-SENIOR INFORMATION SYSTEMS ARCHITECT Myoclonus dystonia (Primary Dx); Status post deep brain stimulator placement 10/27/2024 7:11 AM EDT - 10/27/2024 11:47 AM EDT Emergency [facility] Emergency Medicine [address] [place] [address] Kassandra Fuchs DO Moderate substance use disorder (Primary Dx) Discharge Disposition: Home 10/27/2024 Telephone [facility] [address] [place] [address] Rosalind Pedersen MD DBS 10/27/2024 Travel 10/26/2024 Patient Risk Score ACO Care Management [address] [place] [address] 10/19/2024 Refill [facility] [address] [place] [address] Peña Duncan, COAT FITTER-SENIOR INFORMATION SYSTEMS ARCHITECT Vitamin D deficiency from Last 3 Months Immunizations Immunization Administration Dates Next Due Hepatitis A vaccine, age 19 years and greater (HAVRIX) 12/15/2021,09/16/2020 MMR vaccine, subcutaneous (MMR II) 02/17/1998 PPD Test 03/03/2021, 0,07/26/2019,04/04,10/26/2016 Pneumococcal conjugate vacci ne, 20-valent (PREVNAR 20) 12/15/2021 Pneumococcal polysaccharide vaccine, 23-valent, age 2 years and older (PNEUMOVAX 23) 05/13/2013 Tdap vaccine, age 7 year and older (BOOSTRIX, ADACEL) 05/27/2022,12/15/2021 Family History Medical History Relation Name Comments No Known Problems Mother Lung cancer Paternal Grandmother Relation Name Status Comments Mother Paternal Grandmother Social History Tobacco Use Types Packs/Day Years Used Date Smoking Tobacco: Every Day Cigarettes 1 28.3 Started: 09/1996 Smokeless Tobacco: Never Tobacco Cessation:Ready to Q uit: Not Asked; Counseling Given: Not Answered Alcohol Use Standard Drinks/Week Comments Not Currently 0 (1 standard drink = 0.6 oz pur e alcohol) stopped at age 28 [facility] Utilities Answer Date Recorded In the past 12 months has th e electric, gas, oil, or water company threatened to shut off services in your home? No 11/22/2024 Humiliation, Afraid, Rape, and Kick questionnair e Answer Date Recorded Within the last year, have y ou been afraid of your partner or ex-partner? No 11/22/2024 Within the last year, have y ou been humiliated or emotionally abused in other ways by your partner or ex-partner? No Within the last year, have y ou been kicked, hit, slapped, or otherwise physically hurt by your partner or ex-partner? No 11/22/2024 Within the last year, have y ou been raped or forced to have any kind of sexual activity by your partner or ex-partner? No 11/22/2024 AUDIT-C Answer Date Recorded Q1: How often do you have a drink containing alcohol? Never 11/22/2024 Q2: How many drinks containi ng alcohol do you have on a typical day when you are drinking? Patient does not drink Q3: How often do you have si x or more drinks on one occasion? Never 11/22/2024 Overall Financial Resource Strain (CARDIA) Answe r Date Recorded How hard is it for you to pa y for the very basics like food, housing, medical care, and heating? Very hard 11/22/2024 PHQ-2 Answer Date Recorded Patient Health Questionnaire-2 Score 1 11/22/2024 Hunger Vital Sign Answer Date Recorded Within the past 12 months, y ou worried that your food would run out before you got the money to buy more. Often true 11/23/19 25 Within the past 12 months, t he food you bought just didn't last and you didn't have money to get more. Often true 11/22/2024 PRAPARE - Transportation Answer Date Re corded In the past 12 months, has l ack of transportation kept you from medical appointments or from getting medications? Yes 10/25 In the past 12 months, has l ack of transportation kept you from meetings, work, or from getting things needed for daily living? Yes 11/22/2024 Housing Stability Vital Sign Answer Greg e Recorded In the last 12 months, was t here a time when you were not able to pay the mortgage or rent on time? Yes 11/22/2024 In the past 12 months, how m any times have you moved where you were living? 0 11/22/2024 At any time in the past 12 m [facility], were you homeless or living in a fci (including now)? No 11/22/2024 Sex and Gender Information Value Date Recorded Sex Assigned at Male 03/04/2024 3:27 AM EDT Legal Sex Male 1:26 PM EST Gender Identity Male 03/04/2024 3:27 AM EDT Sexual Orientation Not on file Last Filed Vital Signs Vital Sign Reading Time Taken Comments Blood Pressure 150/88 12/04/2024 12:51 PM EDT Pulse 101 12/04/2024 12:51 PM EDT Temperature 36.7 C (98.1 F) 12/04/2024 2:06 AM EDT Respiratory Rate 16 12/04/2024 8:18 AM EDT Oxygen Saturation 96% 12/04/2024 8:18 AM EDT Inhaled Oxygen Concentration - - Weight 65.8 kg (145 lb) 12/04/2024 2:06 AM EDT Height 185.4 cm (6' 1 ) 12/04/2024 2:06 AM EDT Body Mass Index 19.13 12/04/2024 2:06 AM EDT Plan of Treatment Upcoming Encounters Date Type Department Care Team (Late st Contact Info) Description 06/11/2025 3:00 PM EST Office Visit [facility] [address] [place] [address] Kaden Diaz MD [address] [place], [place] [phone] Health Maintenance Due Date Last Done Comments Varicella Vaccines (1 of 2 - 13+ 2-dose series) 03/17/1998 Hepatitis B Vaccines (1 of 3 - 19+ 3-dose series) 01/28/2004 Yearly Adult Physical 12/16/2022 12/15/2021 HPV Vaccines (2 - 3-dose standard series) 04/11/2023 03/14/2023 COVID-19 Vaccine (3 - 2023-2 5 season) 2024 03/28/2021, 11/24/2020 Influenza Vaccine (#1) 2025 03/14/2023 Lipid Panel 12/14/2027 12/13/2022 DTaP/Tdap/Td Vaccines (3 - T d or Tdap) 05/27/2032 05/27/2022, 12/15/2021 Zoster Vaccines (1 of 2) 2035 MMR Vaccines Completed 02/17/1998 HIV Screening Completed 08/19/2020 Hepatitis A Vaccines Completed 12/15/2021, 09/16/2020 Pneumococcal Vaccine: Pediatrics and At-Risk Adult Patients Completed 12/15/2021, 05/13/2013 HIB Vaccines Aged Out No longer eligi ble based on patient's age to complete this topic IPV Vaccines Aged Out No longer eligi ble based on patient's age to complete this topic Meningococcal Vaccine Aged Out No [place]ul eligible based on patient's age to complete this topic Rotavirus Vaccines Aged Out No longer eligible based on patient's age to complete this topic Medical Devices Implanted Type Area Erp Business Analyst Device Identifier Shelf Expiration Date Model / Serial / Lot Percept Rc Implanted:Qty: 1 on 02/21/2024 by Nelsy Strickland MD at [facility] Other N/A: [employer] 01/19/2026 [id number] / [id number] / Deep Brain Stimulator Brain [employer] [id number] / / Description:[employer]tronic Deep B rain Stimulator Model #[id number] Bilateral GP; IPG in RT pectoral region Procedures Procedure Name Priority Date/Time Associated Diagnosis Comments ECG 12-LEAD STAT 12/04/2024 2:09 AM EDT DRUG SCREEN,URINE STAT 12/03/2024 5:3 7 PM EDT URINALYSIS WITH REFLEX MICROSCOPIC AND CULTURE STAT 12/03/2024 5:[address] HEAD WO IV CONTRAST STAT 5:30 PM EDT SERIAL TROPONIN, 1 HOUR STAT 12/03/2024 5:03 PM EDT ECG 12-LEAD STAT 12/03/2024 4:27 PM EDT ACUTE TOXICOLOGY PANEL, BLOOD STAT 12/03/2024 4:02 PM EDT SERIAL TROPONIN-INITIAL STAT 12/03/2024 4:02 PM EDT TROPONIN SERIES- (INITIAL, 1 HR) STAT 12/03/2024 4:02 PM EDT MAGNESIUM STAT 12/03/2024 4:02 PM EDT COMPREHENSIVE METABOLIC PANEL STAT 12/03/2024 4:02 PM EDT CBC WITH AUTO DIFFERENTIAL STAT 12/03/2024 4:02 PM EDT DRUG SCREEN,URINE STAT 11/24/2024 2:3 4 PM EDT SERIAL TROPONIN, 1 HOUR STAT 11/24/2024 1:44 PM EDT XR CHEST 1 VIEW STAT 11/24/2024 1:21 PM EDT SERIAL TROPONIN-INITIAL STAT 11/24/2024 12:52 PM EDT TROPONIN SERIES- (INITIAL, 1 HR) STAT 11/24/2024 12:52 PM EDT MAGNESIUM STAT 11/24/2024 12:52 PM EDT COMPREHENSIVE METABOLIC PANEL STAT 11/24/2024 12:52 PM EDT CBC WITH AUTO DIFFERENTIAL STAT 11/24/2024 12:52 PM EDT ECG 12-LEAD STAT 11/24/2024 12:48 PM EDT SERIAL TROPONIN, 1 HOUR STAT 11/23/2024 10:02 PM EDT XR CHEST 2 VIEWS STAT 11/23/2024 9:05 PM EDT BLOOD GAS VENOUS FULL PANEL UNSOLICITED Routine 11/23/2024 8:31 PM EDT LAVENDER TOP Routine 11/23/2024 8:30 PM EDT EXTRA TUBES Routine 11/23/2024 8:30 PM EDT SERIAL TROPONIN-INITIAL STAT 11/23/2024 8:30 PM EDT TROPONIN SERIES- (INITIAL, 1 HR) STAT 11/23/2024 8:30 PM EDT MAGNESIUM STAT 11/23/2024 8:30 PM EDT CBC WITH AUTO DIFFERENTIAL STAT 11/23/2024 8:30 PM EDT COMPREHENSIVE METABOLIC PANEL STAT 11/23/2024 8:30 PM EDT CBC WITH AUTO DIFFERENTIAL Routine 11/23/2024 6:10 AM EDT RENAL FUNCTION PANEL Routine 11/23/2024 6:10 AM EDT MAGNESIUM Routine 11/23/2024 6:10 AM EDT DRUG SCREEN,URINE STAT 11/22/2024 1:2 2 PM EDT TSH WITH REFLEX TO FREE T4 IF ABNORMAL Add-On 11/22/2024 10:27 AM EDT SERIAL TROPONIN, 1 HOUR STAT 11/22/2024 10:27 AM EDT XR CHEST 2 VIEWS STAT 11/22/2024 10:0 4 AM EDT SERIAL TROPONIN-INITIAL STAT 11/22/2024 9:46 AM EDT TROPONIN SERIES- (INITIAL, 1 HR) STAT 11/22/2024 9:46 AM EDT MAGNESIUM STAT 11/22/2024 9:46 AM EDT COMPREHENSIVE METABOLIC PANEL STAT 11/22/2024 9:46 AM EDT CBC WITH AUTO DIFFERENTIAL STAT 11/22/2024 9:46 AM EDT ECG 12-LEAD STAT 11/22/2024 9:42 AM EDT XR ABDOMEN 2 VIEWS SUPINE AND ERECT OR DECUB STAT 11/21/2024 1:42 PM EDT SERIAL TROPONIN, 1 HOUR STAT 11/21/2024 4:07 AM EDT XR CHEST 2 VIEWS STAT 11/21/2024 3:03 AM EDT ECG 12-LEAD STAT 11/21/2024 3:00 AM EDT SERIAL TROPONIN-INITIAL STAT 11/21/2024 2:48 AM EDT MAGNESIUM STAT 11/21/2024 2:48 AM EDT COMPREHENSIVE METABOLIC PANEL STAT 11/21/2024 2:48 AM EDT CBC WITH AUTO DIFFERENTIAL STAT 11/21/2024 2:48 AM EDT TROPONIN SERIES- (INITIAL, 1 HR) STAT 11/21/2024 2:48 AM EDT ECG 12-LEAD STAT 11/21/2024 12:40 AM EDT EXTRA URINE PURCELL TUBE STAT 11/18/2024 3:04 AM EDT URINALYSIS WITH REFLEX MICROSCOPIC AND CULTURE STAT 11/18/2024 3:04 AM EDT URINALYSIS WITH REFLEX MICROSCOPIC AND CULTURE STAT 11/18/2024 3:04 AM EDT SERIAL TROPONIN, 1 HOUR STAT 11/18/2024 1:[address] ANGIO CHEST ABDOMEN PELVIS STAT 11/18/2024 1:[address] HEAD WO IV CONTRAST STAT 1:26 AM EDT XR CHEST 1 VIEW STAT 11/17/2024 11:26 PM EDT D-DIMER, VTE EXCLUSION STAT 11:24 PM EDT SERIAL TROPONIN-INITIAL STAT 11/17/2024 11:24 PM EDT MAGNESIUM STAT 11/17/2024 11:24 PM EDT COMPREHENSIVE METABOLIC PANEL STAT 11/17/2024 11:24 PM EDT CBC WITH AUTO DIFFERENTIAL STAT 11/17/2024 11:24 PM EDT TROPONIN SERIES- (INITIAL, 1 HR) STAT 11/17/2024 11:24 PM EDT ECG 12-LEAD STAT 11/17/2024 11:05 PM EDT from Last 3 Months Results * ECG 12 lead (12/04/2024 2:09 AM EDT) Only the most recent of7 resultswithin the time period is included. Ventricular Rate 69 BPM MUSE Atrial Rate 70 BPM MUSE NJ Interval 148 ms MUSE QRS Duration 103 ms MUSE QT Interval 390 ms MUSE QTC Calculation(Baze tt) 418 ms MUSE P [place] 60 degrees MUSE R [place] 90 degrees MUSE T [place] 69 degrees MUSE QRS Count 11 beats MUSE Q Onset 252 ms MUSE T Offset 447 ms MUSE QTC Fredericia 408 ms MUSE 12/03/2024 4:06 PM EDT 12/28/2024 8:00 PM EDT Narrative MUSE - 12/28/2024 8:00 PM EDT Atrial fibrillation Borderline right axis deviation See ED provider note for full interpretation and clinical correlation Confirmed by Alejandra Ewing ([id number]) on 12/28/2024 8:00:40 PM Procedure Note Alejandra Ewing APRN-MAICOL - 12/28/2024 Atrial fibrillation Borderline right axis deviation See ED provider note for full interpretation and clinical correlation Confirmed by Alejandra Ewing ([id number]) on 12/28/2024 8:00:40 PM Antonio Juarez MD ECG ORDERABLES Final Result MUSE * (ABNORMAL) Drug Screen, Urine (12/03/2024 5:37 PM EDT) Only the most recent of3 resultswithin the time period is included. [facility] Amphetamine Screen, Urine Presumptive Negative Presumptive Negative LAB CHEMISTRY METHOD 5 6:06 PM [facility] Comment: CUTOFF LEVEL: 500 NG/ML Cross-reactivity has been reported with high concentrations of the following drugs: buproprion, chloroquine, chlorpromazine, ephedrine, mephentermine, fenfluramine, phentermine, phenylpropanolamine, pseudoephedrine, and propranolol. Barbiturate Screen, Urine Presumptive Negative Presumptive Negative LAB CHEMISTRY METHOD 5 6:06 PM [facility] Comment:CUTOFF LEVEL: 200 NG /ML Benzodiazepines Screen, Urine Presumptive Negative Presumptive Negative LAB CHEMISTRY METHOD 5 6:06 PM T [facility] Comment:CUTOFF LEVEL: 200 NG /ML Cannabinoid Screen, Urine Presumptive Positive(A) Presumptive Negative LAB CHEMISTRY METHOD 5 6:06 PM [facility] Comment:CUTOFF LEVEL: 50 NG/ ML Cocaine Metabolite Screen, Urine Presumptive Negative Presumptive Negative LAB CHEMISTRY METHOD 5 6:06 PM [facility] Comment:CUTOFF LEVEL: 150 NG /ML Fentanyl Screen, Urine Presumptive Negative Presumptive Negative LAB CHEMISTRY METHOD 5 6:06 PM [facility] Comment:CUTOFF LEVEL: 5 NG/M L Opiate Screen, Urine Presumptive Negative Presumptive Negative LAB CHEMISTRY METHOD 5 6:06 PM [facility] Comment: CUTOFF LEVEL: 300 NG/ML The opiate screen does not detect fentanyl, meperidine, or tramadol. Oxycodone is not consistently detected (refer to Oxycodone Screen, Urine result). Oxycodone Screen, Urine Presumptive Negative Presumptive Negative LAB CHEMISTRY METHOD 5 6:06 PM [facility] Comment: CUTOFF LEVEL: 100 NG/ML This test will accurately detect both oxycodone and oxymorphone. PCP Screen, Urine Presumptive Negative Presumptive Negative LAB CHEMISTRY METHOD 5 6:06 PM [facility] Comment: CUTOFF LEVEL: 25 NG/ML Cross-reactivity has been reported with dextromethorphan. Methadone Screen, Urine Presumptive Negative Presumptive Negative LAB CHEMISTRY METHOD 5 6:06 PM [facility] Comment: CUTOFF LEVEL: 150 NG/ML The metabolite [id number] (LAAM) is not detected by this method in concentrations that would be found in the urine of patients on LAAM therapy. Urine Urine specimen / Unknown 12/03/2024 5:37 PM EDT 12/03/2024 5:50 PM [facility] - 12/03/2024 6:06 PM [facility] Drug screen results are presumptive and should not be used to assess compliance with prescribed medication. Contact the performing [facility] laboratory to add-on definitive confirmatory testing if clinically indicated. Toxicology screening results are reported qualitatively. The concentration must be greater than or equal to the cutoff to be reported as positive. The concentration at which the screening test can detect an individual drug or metabolite varies. The absence of expected drug(s) and/or drug metabolite(s) may indicate non-compliance, inappropriate timing of specimen collection relative to drug administration, poor drug absorption, diluted/adulterated urine, or limitations of testing. For medical purposes only; not valid for forensic use. Interpretive questions should be directed to the laboratory medical directors. us Aditya Mijares MD LAB URINE ORDERABLES Final Re sult [facility] [address] [place] [address] * (ABNORMAL) Urinalysis with Reflex Culture and Microscopic (12/03/2024 5:37 PM EDT) Only the most recent of2 resultswithin the time period is included. Color, Urine Colorless(N) Light-Yellow , Yellow, Dark-Yellow 12/03/2024 6:17 PM [facility] Appearance, Urine Clear Clear 12/03/2024 6:17 PM [facility] Specific [place], Urine 1.004(N) 1.005 - 1.035 12/03/2024 6:17 PM [facility] pH, Urine 7.0 5.0, 5.5, 6.0, 6.5, 7.0, 7.5, 8.0 12/03/2024 6:17 PM [facility] Protein, Urine NEGATIVE NEGATIVE, 10 (TRACE), 20 (TRACE) mg/dL 12/03/2024 6:17 PM [facility] Glucose, Urine Normal Normal mg/dL 12/03/2024 6:17 PM [facility] Blood, Urine NEGATIVE NEGATIVE mg/dL 12/03/2024 6:17 PM [facility] Ketones, Urine NEGATIVE NEGATIVE mg/dL 12/03/2024 6:17 PM [facility] Bilirubin, Urine NEGATIVE NEGATIVE mg/dL 12/03/2024 6:17 PM [facility] Urobilinogen, Urine Normal Normal mg/dL 12/03/2024 6:17 PM [facility] Nitrite, Urine NEGATIVE NEGATIVE 12/03/2024 6:17 PM [facility] Leukocyte Esterase, Urine NEGATIVE NEGATIVE 12/03/2024 6:17 PM EDT [facility] Urine Urine specimen / Unknown 12/03/2024 5:37 PM EDT 12/03/2024 5:50 PM EDT us Aditya Mijares MD LAB URINE ORDERABLES Final Re sult [facility] [address] [place] [address] * CT head wo IV contrast (12/03/2024 5:30 PM EDT) Only the most recent of2 resultswithin the time period is included. Anatomical Region Laterality Modality Neuro Computed Tomogra phy 12/03/2024 5:56 PM EDT 12/03/2024 5:56 PM EDT Impressions 12/03/2024 5:55 PM EDT No evidence of acute cortical infarct or intracranial hemorrhage. Redemonstration of bilateral deep brain stimulators. MACRO: None Signed by: Cristofer Mitchell 12/03/2024 5:55 PM Dictation workstation: [id number] Narrative 12/03/2024 5:55 PM EDT Interpreted By: Cristofer Mitchell, STUDY: CT HEAD WO IV CONTRAST; 12/03/2024 5:30 pm INDICATION: Signs/Symptoms:myoclonus, vision change, dizziness. COMPARISON: Head CT 11/18/2024 ACCESSION NUMBER(S): [id number] ORDERING CLINICIAN: ADITYA MIJARES TECHNIQUE: Noncontrast axial CT scan of head was performed. Angled reformats in brain and bone windows were generated. The images were reviewed in bone, brain, blood and soft tissue windows. FINDINGS: CSF Spaces: The ventricles, sulci and basal cisterns are within normal limits. There is no extraaxial fluid collection. Parenchyma: Similar appearance of bilateral deep brain stimulators with extensive beam hardening artifact which limits evaluation. In addition, examination is mildly limited due to motion artifact. The calderon-white differentiation is intact. There is no mass effect or midline shift. There is no intracranial hemorrhage. Calvarium: The calvarium is unremarkable. Paranasal sinuses and mastoids: Visualized paranasal sinuses and mastoids are clear. Procedure Note Cristofer Mitchell MD - 12/03/2024 Interpreted By: Cristofer Mitchell, STUDY: CT HEAD WO IV CONTRAST; 12/03/2024 5:30 pm INDICATION: Signs/Symptoms:myoclonus, vision change, dizziness. COMPARISON: Head CT 11/18/2024 ACCESSION NUMBER(S): [id number] ORDERING CLINICIAN: ADITYA MIJARES TECHNIQUE: Noncontrast axial CT scan of head was performed. Angled reformats in brain and bone windows were generated. The images were reviewed in bone, brain, blood and soft tissue windows. FINDINGS: CSF Spaces: The ventricles, sulci and basal cisterns are within normal limits. There is no extraaxial fluid collection. Parenchyma: Similar appearance of bilateral deep brain stimulators with extensive beam hardening artifact which limits evaluation. In addition, examination is mildly limited due to motion artifact. The calderon-white differentiation is intact. There is no mass effect or midline shift. There is no intracranial hemorrhage. Calvarium: The calvarium is unremarkable. Paranasal sinuses and mastoids: Visualized paranasal sinuses and mastoids are clear. IMPRESSION: No evidence of acute cortical infarct or intracranial hemorrhage. Redemonstration of bilateral deep brain stimulators. MACRO: None Signed by: Cristofer Mitchell 12/03/2024 5:55 PM Dictation workstation: [id number] us Aditya Mijares MD [facility] [place] PROCEDURES Final Resul t * Troponin, High Sensitivity, 1 Hour (12/03/2024 5:03 PM EDT) Only the most recent of6 resultswithin the time period is included. Troponin I, High Sensitivity 3 0 - 20 ng/L LAB IMMUNOASSAY METHOD 12/03/2024 5:50 PM EDT [facility] Blood Venous blood specimen / Unknown Venipuncture / Unknown 12/03/2024 5:03 PM EDT 12/03/2024 5:08 PM EDT [facility] - 12/03/2024 5:50 PM EDT Less than 99th percentile of normal range cutoff- Female and children under 18 years old <14 ng/L; Male <21 ng/L: Negative Repeat testing should be performed if clinically indicated. Female and children under 18 years old 14-50 ng/L; Male 21-50 ng/L: Consistent with possible cardiac damage and possible increased clinical risk. Serial measurements may help to assess extent of myocardial damage. >50 ng/L: Consistent with cardiac damage, increased clinical risk and myocardial infarction. Serial measurements may help assess extent of myocardial damage. NOTE: Children less than 1 year old may have higher baseline troponin levels and results should be interpreted in conjunction with the overall clinical context. NOTE: Troponin I testing is performed using a different testing methodology at [facility] than at other [facility]. Direct result comparisons should only be made within the same method. us Aditya Mijares MD LAB BLOOD ORDERABLES Final Re sult [facility] [address] [place] [address] * CBC and Auto Differential (12/03/2024 4:02 PM EDT) Only the most recent of7 resultswithin the time period is included. WBC 8.7 4.4 - 11.3 x10*3/uL LAB HEMATOLOGY [facility] nRBC 0.0 0.0 - 0.0 /100 WBCs LAB HEMATOLOGY METHOD 12/03/2024 4:[facility] RBC 4.78 4.50 - 5.90 x10*6/uL LAB HEMATOLOGY METHOD 12/03/2024 4:15 PM [facility] Hemoglobin 14.2 13.5 - 17.5 g/dL LAB HEMATOLOGY METHOD 12/03/2024 4:15 PM [facility] Hematocrit 43.7 41.0 - 52.0 % LAB HEMATOLOGY METHOD 12/03/2024 4:[facility] MCV 91 80 - 100 fL LAB HEMATOLOGY METHOD 12/03/2024 4:15 PM [facility] MCH 29.7 26.0 - 34.0 pg LAB HEMATOLOGY METHOD 12/03/2024 4:15 PM [facility] MCHC 32.5 32.0 - 36.0 g/dL LAB HEMATOLOGY METHOD 12/03/2024 4:15 PM [facility] RDW 12.5 11.5 - 14.5 % LAB HEMATOLOGY METHOD 12/03/2024 4:15 PM [facility] Platelets 311 150 - 450 x10*3/uL LAB HEMATOLOGY METHOD 12/03/2024 4:15 PM [facility] Neutrophils % 76.4 40.0 - 80.0 % LAB HEMATOLOGY METHOD 12/03/2024 4:15 PM [facility] Immature Granulocytes %, Automated 0.5 0.0 - 0.9 % LAB HEMATOLOGY METHOD 12/03/2024 4:15 PM [facility] Comment:Immature Granulocyte Count (IG) includes promyelocytes, myelocytes and metamyelocytes but does not include bands. Percent differential counts (%) should be interpreted in the context of the absolute cell counts (cells/UL). Lymphocytes % 14.8 13.0 - 44.0 % LAB HEMATOLOGY METHOD 12/03/2024 4:15 PM [facility] Monocytes % 6.8 2.0 - 10.0 % LAB HEMATOLOGY METHOD 12/03/2024 4:15 PM [facility] Eosinophils % 0.6 0.0 - 6.0 % LAB HEMATOLOGY METHOD 12/03/2024 4:15 PM [facility] Basophils % 0.9 0.0 - 2.0 % LAB HEMATOLOGY METHOD 12/03/2024 4:15 PM [facility] Neutrophils Absolute 6.68 1.20 - 7.70 x10*3/uL LAB HEMATOLOGY METHOD 12/03/2024 4:15 PM [facility] Comment:Percent differential counts (%) should be interpreted in the context of the absolute cell counts (cells/uL). Immature Granulocytes Absolute, Automated 0.04 0.00 - 0.70 x10*3/uL LAB HEMATOLOGY METHOD 12/03/2024 4:15 PM [facility] Lymphocytes Absolute 1.29 1.20 - 4.80 x10*3/uL LAB HEMATOLOGY METHOD 12/03/2024 4:15 PM EDT [facility] Monocytes Absolute 0.59 0.10 - 1.00 x10*3/uL LAB HEMATOLOGY METHOD 12/03/2024 4:15 PM EDT [facility] Eosinophils Absolute 0.05 0.00 - 0.70 x10*3/uL LAB HEMATOLOGY METHOD 12/03/2024 4:15 PM EDT [facility] Basophils Absolute 0.08 0.00 - 0.10 x10*3/uL LAB HEMATOLOGY METHOD 12/03/2024 4:15 PM EDT [facility] Blood Venous blood specimen / Unknown Venipuncture / Unknown 12/03/2024 4:02 PM EDT 12/03/2024 4:08 PM EDT us Aditya Mijares MD LAB BLOOD ORDERABLES Final Re sult [facility] [address] [place] [address] * Troponin I, High Sensitivity, Initial (12/03/2024 4:02 PM EDT) Only the most recent of6 resultswithin the time period is included. Pathologist [facility] Troponin I, High Sensitivity 3 0 - 20 ng/L LAB IMMUNOASSAY METHOD 12/03/2024 4:38 PM EDT [facility] Blood Venous blood specimen / Unknown Venipuncture / Unknown 12/03/2024 4:02 PM EDT 12/03/2024 4:09 PM EDT Narrative [facility] - 12/03/2024 4:38 PM EDT Less than 99th percentile of normal range cutoff- Female and children under 18 years old <14 ng/L; Male <21 ng/L: Negative Repeat testing should be performed if clinically indicated. Female and children under 18 years old 14-50 ng/L; Male 21-50 ng/L: Consistent with possible cardiac damage and possible increased clinical risk. Serial measurements may help to assess extent of myocardial damage. >50 ng/L: Consistent with cardiac damage, increased clinical risk and myocardial infarction. Serial measurements may help assess extent of myocardial damage. NOTE: Children less than 1 year old may have higher baseline troponin levels and results should be interpreted in conjunction with the overall clinical context. NOTE: Troponin I testing is performed using a different testing methodology at [facility] than at other [facility]. Direct result comparisons should only be made within the same method. Aditya Mijares MD LAB BLOOD ORDERABLES Final Re sult Performing Organization Address [facility] Co de Phone Number [facility] [address] [place] [address] * Acute Toxicology Panel, Blood (12/03/2024 4:02 PM EDT) Acetaminophen <10.0 10.0 - 30.0 ug/mL LAB CHEMISTRY METHOD 12/03/2024 4:31 PM EDT [facility] Salicylate <3 4 - 20 mg/dL LAB CHEMISTRY METHOD 12/03/2024 4:31 PM EDT [facility] Alcohol <10 <=10 mg/dL LAB CHEMISTRY METHOD 12/03/2024 4:31 PM EDT [facility] Blood Venous blood specimen / Unknown Venipuncture / Unknown 12/03/2024 4:02 PM EDT 12/03/2024 4:09 PM EDT Aditya Mijares MD LAB BLOOD ORDERABLES Final Re sult Performing Organization Address [facility] de Phone Number [facility] [address] [place] [address] * Magnesium (12/03/2024 4:02 PM EDT) Only the most recent of7 resultswithin the time period is included. Magnesium 2.11 1.60 - 2.40 mg/dL LAB CHEMISTRY METHOD 12/03/2024 4:31 PM EDT [facility] Blood Venous blood specimen / Unknown Venipuncture / Unknown 12/03/2024 4:02 PM EDT 12/03/2024 4:09 PM EDT us Aditya Mijares MD LAB BLOOD ORDERABLES Final Re sult [facility] [address] [place] [address] * (ABNORMAL) Comprehensive metabolic panel (12/03/2024 4:02 PM EDT) Only the most recent of6 resultswithin the time period is included. Glucose 97 74 - 99 mg/dL LAB CHEMISTRY METHOD 12/03/2024 4:31 PM EDT [facility] Sodium 140 136 - 145 mmol/L LAB CHEMISTRY METHOD 12/03/2024 4:31 PM [facility] Potassium 3.7 3.5 - 5.3 mmol/L LAB CHEMISTRY METHOD 12/03/2024 4:31 PM [facility] Chloride 100 98 - 107 mmol/L LAB CHEMISTRY METHOD 12/03/2024 4:31 PM [facility] Bicarbonate 32 21 - 32 mmol/L LAB CHEMISTRY METHOD 12/03/2024 4:31 PM [facility] Anion Gap 12 10 - 20 mmol/L LAB CHEMISTRY METHOD 12/03/2024 4:31 PM [facility] Urea Nitrogen 15 6 - 23 mg/dL LAB CHEMISTRY METHOD 12/03/2024 4:31 PM [facility] Creatinine 0.95 0.50 - 1.30 mg/dL LAB CHEMISTRY METHOD 12/03/2024 4:31 PM [facility] eGFR >90 >60 mL/min/1. 73m*2 LAB CHEMISTRY METHOD 12/03/2024 4:31 PM [facility] Comment: Calculations of estimated GFR are performed using the 2020 CKD-EPI Study Refit equation without the race variable for the IDMS-Traceable creatinine methods. https://jasn.asnjournals.org/content///ASN.1554567369 Calcium 10.0 8.6 - 10.3 mg/dL LAB CHEMISTRY METHOD [facility]/03[facility]2024 [facility] Albumin 5.1(H) 3.4 - 5.0 g/dL LAB CHEMISTRY METHOD 12/03/2024 4:31 PM EDT [facility] Alkaline Phosphatase 47 33 - 120 U/L LAB CHEMISTRY METHOD 12/03/2024 4:31 PM EDT [facility] Total Protein 8.1 6.4 - 8.2 g/dL LAB CHEMISTRY METHOD 12/03/2024 4:31 PM EDT [facility] AST 22 9 - 39 U/L LAB CHEMISTRY METHOD 12/03/2024 4:31 PM EDT [facility] Bilirubin, Total 0.3 0.0 - 1.2 mg/dL LAB CHEMISTRY METHOD 12/03/2024 4:31 PM EDT [facility] ALT 18 10 - 52 U/L LAB CHEMISTRY METHOD 12/03/2024 4:31 PM EDT [facility] Comment:Patients treated wit h Sulfasalazine may generate falsely decreased results for ALT. Blood Venous blood specimen / Unknown Venipuncture / Unknown 12/03/2024 4:02 PM EDT 12/03/2024 4:09 PM EDT us Aditya Mijares MD LAB BLOOD ORDERABLES Final Re sult [facility] [address] [place], [place] [id number] * XR chest 1 view (11/24/2024 1:21 PM EDT) Only the most recent of2 resultswithin the time period is included. Anatomical Region Laterality Modality Thoracic, Chest Computed Radiogr aphy 11/24/2024 1:25 PM EDT 11/24/2024 1:25 PM EDT Impressions 11/24/2024 1:23 PM EDT 1. No evidence of acute cardiopulmonary process. MACRO: None Signed by: Jesus Vasquez 11/24/2024 1:23 PM Dictation workstation: [id number] Narrative 11/24/2024 1:23 PM EDT Interpreted By: Jesus Vasquez, STUDY: XR CHEST 1 VIEW; 11/24/2024 1:21 pm INDICATION: Signs/Symptoms:Chest pain. COMPARISON: 11/23/2024 ACCESSION NUMBER(S): [id number] ORDERING CLINICIAN: GATITO LOPEZ FINDINGS: CARDIOMEDIASTINAL SILHOUETTE: Cardiomediastinal silhouette is normal in size and configuration. LUNGS: There is no consolidation. There is no effusion. There is no edema ABDOMEN: No remarkable upper abdominal findings. BONES: No acute osseous changes. Procedure Note Jesus Vasquez MD - 11/24/2024 Interpreted By: Jesus Vasquez, STUDY: XR CHEST 1 VIEW; 11/24/2024 1:21 pm INDICATION: Signs/Symptoms:Chest pain. COMPARISON: 11/23/2024 ACCESSION NUMBER(S): [id number] ORDERING CLINICIAN: GATITO LOPEZ FINDINGS: CARDIOMEDIASTINAL SILHOUETTE: Cardiomediastinal silhouette is normal in size and configuration. LUNGS: There is no consolidation. There is no effusion. There is no edema ABDOMEN: No remarkable upper abdominal findings. BONES: No acute osseous changes. IMPRESSION: 1. No evidence of acute cardiopulmonary process. MACRO: None Signed by: Jesus Vasquez 11/24/2024 1:23 PM Dictation workstation: [id number] Gatito Lopez PA-C IMG XR PROCEDURES Final Re sult * XR chest 2 views (11/23/2024 9:05 PM EDT) Only the most recent of3 resultswithin the time period is included. Anatomical Region Laterality Modality Thoracic, Chest Computed Radiogr aphy 11/23/2024 9:12 PM EDT 11/23/2024 9:22 PM EDT Impressions 11/23/2024 9:21 PM EDT 1. No evidence of acute cardiopulmonary process. I personally reviewed the images/study and I agree with the findings as stated by resident Arturo Heard. This study was interpreted at [place], [place]. MACRO: None Signed by: Joseph Cantu 11/23/2024 9:21 PM Dictation workstation: [id number] Narrative 11/23/2024 9:21 PM EDT Interpreted By: Joseph Cantu and Ritchie Brandon STUDY: XR CHEST 2 VIEWS; 11/23/2024 9:05 pm INDICATION: Signs/Symptoms:CP. COMPARISON: Chest radiograph 11/22/2024, 10 a.m. ACCESSION NUMBER(S): [id number] ORDERING CLINICIAN: MONICA FISHER FINDINGS: PA and lateral radiographs of the chest were provided. Deep brain stimulator in the subcutaneous soft tissues of the right chest with the leads located superiorly outside of the field of view.. CARDIOMEDIASTINAL SILHOUETTE: Cardiomediastinal silhouette is normal in size and configuration. LUNGS: No consolidation, pleural effusion, or pneumothorax. ABDOMEN: No remarkable upper abdominal findings. BONES: No acute osseous changes. Procedure Note Joseph Cantu MD - 11/23/2024 Interpreted By: Joseph Cantu and Ritchie Brandon STUDY: XR CHEST 2 VIEWS; 11/23/2024 9:05 pm INDICATION: Signs/Symptoms:CP. COMPARISON: Chest radiograph 11/22/2024, 10 a.m. ACCESSION NUMBER(S): [id number] ORDERING CLINICIAN: MONICA FISHER FINDINGS: PA and lateral radiographs of the chest were provided. Deep brain stimulator in the subcutaneous soft tissues of the right chest with the leads located superiorly outside of the field of view.. CARDIOMEDIASTINAL SILHOUETTE: Cardiomediastinal silhouette is normal in size and configuration. LUNGS: No consolidation, pleural effusion, or pneumothorax. ABDOMEN: No remarkable upper abdominal findings. BONES: No acute osseous changes. IMPRESSION: 1. No evidence of acute cardiopulmonary process. I personally reviewed the images/study and I agree with the findings as stated by resident Arturo Heard. This study was interpreted at [facility], [place], [place]. MACRO: None Signed by: Joseph Cantu 11/23/2024 9:21 PM Dictation workstation: [id number] us Monica Fsiher MD IMG XR PROCEDURES Final Re sult * (ABNORMAL) Blood Gas Venous Full Panel Unsolicited (11/23/2024 8:31 PM EDT) [facility] POCT pH, Venous 7.42 7.33 - 7.43 pH 11/23/2024 8:32 PM EDT [facility] POCT pCO2, Venous 47 41 - 51 mm Hg 11/23/2024 8:32 PM EDT [facility] POCT pO2, Venous 50(H) 35 - 45 mm Hg 11/23/2024 8:32 PM EDT [facility] POCT SO2, Venous 85(H) 45 - 75 % 11/24/19 8:32 PM EDT [facility] POCT Oxy Hemoglobin, Venous 80.4(H) 45.0 - 75.0 % 11/23/2024 8:32 PM EDT [facility] POCT Hematocrit Calculated, Venous 40.0(L) 41.0 - 52.0 % 11/23/2024 8:32 PM EDT [facility] POCT Sodium, Venous 136 136 - 145 mmol/L 11/23/2024 8:32 PM EDT [facility] POCT Potassium, Venous 4.3 3.5 - 5.3 mmol/L 11/23/2024 8:32 PM EDT [facility] POCT Chloride, Venous 101 98 - 107 mmol/L 11/23/2024 8:32 PM EDT [facility] POCT Ionized Calicum, Venous 1.21 1.10 - 1.33 mmol/L 11/23/2024 8:32 PM EDT [facility] POCT Glucose, Venous 88 74 - 99 mg/dL 11/23/2024 8:32 PM EDT [facility] POCT Lactate, Venous 0.9 0.4 - 2.0 mmol/L 11/23/2024 8:32 PM EDT [facility] POCT Base Excess, Venous 5.1(H) -2.0 - 3.0 mmol/L 11/23/2024 8:32 PM EDT [facility] POCT HCO3 Calculated, Venous 30.5(H) 22.0 - 26.0 mmol/L 11/23/2024 8:32 PM EDT [facility] POCT Hemoglobin, Venous 13.4(L) 13.5 - 17.5 g/dL 11/23/2024 8:32 PM EDT [facility] POCT Anion Gap, Venous 9.0(L) 10.0 - 25.0 mmol/L 11/23/2024 8:32 PM EDT [facility] Patient Temperature 37.0 degrees Celsius 11/23/2024 8:32 PM EDT [facility] Comment:NOTE: Patient Result s are Not Corrected for Temperature Blood Venous blood specimen / Unknown 11/23/2024 8:31 PM EDT 11/23/2024 8:32 PM EDT Monica Fisher MD LAB BLOOD ORDERABLES Final Result Performing Organization Address [facility]/ZIP Co de Phone Number [facility] [address] [place] [id number] * Lavender Top (11/23/2024 8:30 PM EDT) Extra Tube Hold for add-ons. 11/24/2024 8:31 AM EDT [facility] Comment:Auto resulted. Blood Venous blood specimen / Unknown 11/23/2024 8:30 PM EDT 11/23/2024 8:46 PM EDT us Monica Fisher MD LAB BLOOD ORDERABLES Final Result Performing Organization Address City/[facility] Co de Phone Number [facility] [address] [place] [phone] * Renal Function Panel (11/23/2024 6:10 AM EDT) Glucose 84 74 - 99 mg/dL LAB CHEMISTRY METHOD 11/23/2024 8:04 AM EDT [facility] Sodium 143 136 - 145 mmol/L LAB CHEMISTRY METHOD 11/23/2024 8:04 AM EDT [facility] Potassium 4.0 3.5 - 5.3 mmol/L LAB CHEMISTRY METHOD 11/23/2024 8:04 AM EDT [facility] Chloride 104 98 - 107 mmol/L LAB CHEMISTRY METHOD 11/23/2024 8:04 AM EDT [facility] Bicarbonate 28 21 - 32 mmol/L LAB CHEMISTRY METHOD 11/23/2024 8:04 AM EDT [facility] Anion Gap 15 10 - 20 mmol/L LAB CHEMISTRY METHOD 11/23/2024 8:04 AM EDT [facility] Urea Nitrogen 12 6 - 23 mg/dL LAB CHEMISTRY METHOD 11/23/2024 8:04 AM EDT [facility] Creatinine 0.99 0.50 - 1.30 mg/dL LAB CHEMISTRY METHOD 11/23/2024 8:04 AM EDT [facility] eGFR >90 >60 mL/min/1.7 3m*2 LAB CHEMISTRY METHOD 11/23/2024 8:04 AM EDT [facility] Comment: Calculations of estimated GFR are performed using the 2020 CKD-EPI Study Refit equation without the race variable for the IDMS-Traceable creatinine methods. https://jasn.asnjournals.org/content/early//ASN.2668929254 Calcium 9.1 8.6 - 10.6 mg/dL LAB CHEMISTRY METHOD 11/23/2024 8:04 AM EDT [facility] Phosphorus 4.7 2.5 - 4.9 mg/dL LAB CHEMISTRY METHOD 11/23/2024 8:04 AM EDT [facility] Albumin 4.2 3.4 - 5.0 g/dL LAB CHEMISTRY METHOD 11/23/2024 8:04 AM EDT [facility] Blood Venous blood specimen / Unknown Venipuncture / Unknown 11/23/2024 6:10 AM EDT 11/23/2024 7:25 AM EDT us Oscar Duque DO LAB BLOOD ORDERABLES Final Resul t [facility] [address] [facility] [address] [place] [address] * TSH with reflex to Free T4 if abnormal (11/22/2024 10:27 AM EDT) Thyroid Stimulating Hormone 1.70 0.44 - 3.98 mIU/L LAB IMMUNOASSAY METHOD 11/22/2024 11:44 AM EDT [facility] Blood Venous blood specimen / Unknown Venipuncture / Unknown 11/22/2024 10:27 AM EDT 11/22/2024 10:51 AM EDT Narrative [facility] - 11/22/2024 11:44 AM EDT TSH testing is performed using different testing methodology at [facility] than at other [facility]. Direct result comparisons should only be made within the same method. us Glory Meza MD LAB BLOOD ORDERABLES Final Res ult [facility] [address] [facility] [id number] [place] [address] * XR abdomen 2 views supine and erect or decub (11/21/2024 1:42 PM EDT) Anatomical Region Laterality Modality Thoracic, Abdomen Computed Radio graphy 11/21/2024 1:46 PM EDT 11/21/2024 1:46 PM EDT Impressions 11/21/2024 1:44 PM EDT 1. No evidence of bowel obstruction MACRO: None Signed by: Jesus Vasquez 11/21/2024 1:44 PM Dictation workstation: [id number] Narrative 11/21/2024 1:44 PM EDT Interpreted By: Jesus Vasquze STUDY: XR ABDOMEN 2 VIEWS SUPINE AND ERECT OR DECUB; 11/21/2024 1:42 pm INDICATION: Signs/Symptoms:Abdominal pain, recent CT negatve for acute findings. COMPARISON: None. ACCESSION NUMBER(S): [id number] ORDERING CLINICIAN: CABRERA MELLO FINDINGS: Nonobstructive bowel gas pattern. Limited evaluation of pneumoperitoneum on supine imaging, however no gross evidence of free air is noted. Visualized lungs are clear. Postsurgical changes in the pelvis across the SI joints. Procedure Note Jesus Vasquez MD - 11/21/2024 Interpreted By: Jesus Vasquez, STUDY: XR ABDOMEN 2 VIEWS SUPINE AND ERECT OR DECUB; 11/21/2024 1:42 pm INDICATION: Signs/Symptoms:Abdominal pain, recent CT negatve for acute findings. COMPARISON: None. ACCESSION NUMBER(S): [id number] ORDERING CLINICIAN: CABRERA MELLO FINDINGS: Nonobstructive bowel gas pattern. Limited evaluation of pneumoperitoneum on supine imaging, however no gross evidence of free air is noted. Visualized lungs are clear. Postsurgical changes in the pelvis across the SI joints. IMPRESSION: 1. No evidence of bowel obstruction MACRO: None Signed by: Jesus Vasquez 11/21/2024 1:44 PM Dictation workstation: [id number] us Cabrera Mello MD IMG XR PROCEDURES Final Result * Extra Urine Purcell Tube (11/18/2024 3:04 AM EDT) Extra Tube 293 11/18/2024 9:4 5 AM EDT [facility] Urine Urine specimen / Unknown Non-blood Collection / Unknown 11/18/2024 3:04 AM EDT 11/18/2024 3:51 AM EDT us Nelsy Good MD LAB URINE ORDERABLES Final Resu lt [facility] [address] [place] [address] * CT angio chest abdomen pelvis (11/18/2024 1:26 AM EDT) Anatomical Region Laterality Modality Thoracic, Body Computed Tomogra phy 11/18/2024 1:40 AM EDT 11/18/2024 1:40 AM EDT Impressions 11/18/2024 2:08 AM EDT No acute vascular abnormality. Overall no acute CT findings of the chest, abdomen or pelvis. Signed by Jeffry Lomeli MD Narrative 11/18/2024 2:08 AM EDT STUDY: CT Angiogram of the Chest, Abdomen, and Pelvis; 11/18/2024 1:27 INDICATION: Chest and abdominal pain radiating to back. COMPARISON: 06/28/2023 XR Chest, 10/20/2022 CT Abdomen and Pelvis, 10/12/2022 CT Abdomen and Pelvis. ACCESSION NUMBER(S): [id number] ORDERING CLINICIAN: NELSY GOOD TECHNIQUE: Helical CT is performed from the lung apices through the symphysis pubis after bolus administration of 100 mL of Omnipaque 350. Images are reviewed and processed at a workstation according to the CT angiogram protocol with 3-D and/or MIP post processing imaging generated. Automated mA/kV exposure control was utilized and patient examination was performed in strict accordance with principles of ALARA. FINDINGS: VASCULAR: Pulmonary arteries: Pulmonary arteries are adequately opacified without acute or chronic filling defects. Thoracic aorta: The thoracic aorta is normal in course and caliber without dissection or aneurysm. Mesenteric: The celiac, SMA, and THANG demonstrate no significant stenosis. Right renal: Single vessel demonstrates no significant stenosis. Left renal: Single vessel demonstrates no significant stenosis. Abdominal aorta: The abdominal aorta is not aneurysmal and demonstrates no significant occlusive disease. Iliacs: The common, external, and internal iliac vessels demonstrate no aneurysmal disease or significant stenosis. Chest: The heart is normal in size without pericardial effusion. Central vascular structures opacify normally. Thoracic lymph nodes are not enlarged. There is no pleural effusion, pleural thickening, or pneumothorax. The airways are patent. Lungs are clear without consolidation, interstitial disease, or suspicious nodules. Abdomen: The liver is normal. The pancreas, spleen, adrenal glands, and kidneys demonstrate no acute pathology. There is no free air or lymph node enlargement. Abdominal aorta is not aneurysmal. Pelvis: There is no bowel wall thickening or obstruction. There is no free fluid. Lymph nodes are not enlarged. Urinary bladder is unremarkable. Skeleton: No acute osseous abnormality. Old posttraumatic changes of the pelvis noted. Procedure Note Jeffry Lomeli MD - 11/18/2024 STUDY: CT Angiogram of the Chest, Abdomen, and Pelvis; 11/18/2024 1:27 INDICATION: Chest and abdominal pain radiating to back. COMPARISON: 06/28/2023 XR Chest, 10/20/2022 CT Abdomen and Pelvis, 10/12/2022 CT Abdomen and Pelvis. ACCESSION NUMBER(S): [id number] ORDERING CLINICIAN: NELSY GOOD TECHNIQUE: Helical CT is performed from the lung apices through the symphysis pubis after bolus administration of 100 mL of Omnipaque 350. Images are reviewed and processed at a workstation according to the CT angiogram protocol with 3-D and/or MIP post processing imaging generated. Automated mA/kV exposure control was utilized and patient examination was performed in strict accordance with principles of ALARA. FINDINGS: VASCULAR: Pulmonary arteries: Pulmonary arteries are adequately opacified without acute or chronic filling defects. Thoracic aorta: The thoracic aorta is normal in course and caliber without dissection or aneurysm. Mesenteric: The celiac, SMA, and THANG demonstrate no significant stenosis. Right renal: Single vessel demonstrates no significant stenosis. Left renal: Single vessel demonstrates no significant stenosis. Abdominal aorta: The abdominal aorta is not aneurysmal and demonstrates no significant occlusive disease. Iliacs: The common, external, and internal iliac vessels demonstrate no aneurysmal disease or significant stenosis. Chest: The heart is normal in size without pericardial effusion. Central vascular structures opacify normally. Thoracic lymph nodes are not enlarged. There is no pleural effusion, pleural thickening, or pneumothorax. The airways are patent. Lungs are clear without consolidation, interstitial disease, or suspicious nodules. Abdomen: The liver is normal. The pancreas, spleen, adrenal glands, and kidneys demonstrate no acute pathology. There is no free air or lymph node enlargement. Abdominal aorta is not aneurysmal. Pelvis: There is no bowel wall thickening or obstruction. There is no free fluid. Lymph nodes are not enlarged. Urinary bladder is unremarkable. Skeleton: No acute osseous abnormality. Old posttraumatic changes of the pelvis noted. IMPRESSION: No acute vascular abnormality. Overall no acute CT findings of the chest, abdomen or pelvis. Signed by Jeffry Lomeli MD Nelsy Good MD [facility] [place] PROCEDURES Final Result * D-dimer, VTE Exclusion (11/17/2024 11:24 PM EDT) D-Dimer, Quantitative VTE Exclusion 255 <=500 ng/mL FEU LAB COAGULATION METHOD 11/17/2024 11:56 PM EDT [facility] Blood Venous blood specimen / Unknown Venipuncture / Unknown 11/17/2024 11:24 PM EDT 11/17/2024 11:42 PM EDT Narrative [facility] - 11/17/2024 11:56 PM EDT The VTE Exclusion D-Dimer assay is reported in ng/mL Fibrinogen Equivalent Units (FEU). Per flight software test engineer's instructions for use, a value of less than 500 ng/mL (FEU) may help to exclude DVT or PE in outpatients when the assay is used with a clinical pretest probability assessment.(AEMR must utilize and document eCalc 'Wells Score Deep Vein Thrombosis Risk' for DVT exclusion only. Emergency Department should utilize Guidelines for Emergency Department Use of the VTE Exclusion D-Dimer and Clinical Pretest probability assessment model for DVT or PE exclusion.) Nelsy Good MD LAB BLOOD ORDERABLES Final Resu lt [facility] [address] [facility] [id number] [place] [address] from Last 3 Months Insurance MEDICAID MEDICAID Advance Directives For more information, please contact: [phone] (Available ) * Full Code (Latest Code Status on File) Date Activated Date Inactivated Comments 11/22/2024 4:26 PM Question Answer Comments Plan of Care: Code Status Discussion Completed Decision Maker: Patient * Full Code Date Activated Date Inactivated Comments 02/21/2024 10:14 AM 11/22/2024 4:26 PM Question Answer Comments Plan of Care: Code Status Discussion Not Compl eted Decision Maker: Provider Rationale: Patient condition does not warra nt discussion Care Teams Embedded Software Manager Relationship Specialty Start Date End Date Dedra Mott MD [address] [place] [address] PCP - General 05/29/22 Monica Damian, COAT FITTER-SENIOR INFORMATION SYSTEMS ARCHITECT [address] [facility] Department [place] [address] PCP - Eunice ROWE PCP 05/25/24 Rosalind Pedersen MD [address] [place] [address] Consulting Physician Neurology 04/02/23
--- OUTSIDE RECORDS SUMMARY | 2025-01-07 15:20 | XMS_ITS | Encounter Summary ---
Author Organization [facility] Address [address] [place] [address] Phone Care Team Providers Care Soil Conservationist Name Role Phone Dedra Mott MD Primary Care Provider [phone] Rosalind Pedersen MD Unavailable [phone] Monica Damian SUPERVISOR ASSEMBLY AND PACKING-EXCEPTIONAL NEEDS TEACHER Unavailable Encounter Details Date Type Department Care Team (Late st Contact Info) Description 12/26/2024 Patient Risk Score [facility] Care Management [address] [place] [phone] Social History Tobacco Use Types Packs/Day Years Used Date Smoking Tobacco: Every Day Cigarettes 1 28.3 Started: 09/1996 Smokeless Tobacco: Never Alcohol Use Standard Drinks/Week Comments Not Currently 0 (1 standard drink = 0.6 oz pur e alcohol) stopped at age 28 [facility] Utilities Answer Date Recorded In the past 12 months has e electric, gas, oil, or water company [...] any time in the past 12 [facility], were you homeless or living in a mcc (including now)? No 11/22/2024 Sex and Gender Information Value Date Recorded Sex Assigned at Male 03/04/2024 3:27 AM EDT Legal Sex Male 1:26 PM EST Gender Identity Male 03/04/2024 3:27 AM EDT Sexual Orientation Not on file COVID-19 Exposure Response Date Recorded In the last 10 days, have yo u been in contact with someone who was confirmed or suspected to have Coronavirus/COVID-19? No / Unsure 12/03/2024 2:48 PM EDT documented as of this encounter Plan of Treatment Upcoming Encounters Date Type Department Care Team (Late st Contact Info) Description 06/11/2025 3:00 PM EST Office Visit [facility] [address] [place] [phone] Kaden Diaz MD [address] [place] [address] documented as of this encounter Visit Diagnoses Not on filedocumented in this encounter Additional Health Concerns Assessment Noted Time A fall risk assessment has been complete d for the patient 01/31/2024 9:06 AM EDT documented as of this encounter Care Teams Soil Conservationist Relationship Specialty Start Date End Date Dedra Mott MD [address] [place] [address] PCP - General 05/29/22 Monica Damian APRN-EXCEPTIONAL NEEDS TEACHER [address] [facility] Department [place] [address] PCP - Eunice ROWE PCP 05/25/24 Rosalind Pedersen MD [address] [place] [address] Consulting Physician Neurology 04/02/23 documented as of this encounter
--- OUTSIDE RECORDS SUMMARY | 2025-01-07 15:20 | XMS_ITS | Encounter Summary ---
Author Organization [facility] Address [address] [place] [address] Phone Care Team Providers Care Plumbers And Top Helpers Name Role Phone Dedra Mott MD Primary Care Provider [phone] Rosalind Pedersen MD Unavailable [phone] Monica Damian STORE KEEPER-BOX CAR WASHER Unavailable Humberto Wong RN Unavailable Unavailable Humberto Wong RN Unavailable Unavailable Laura Urrutia RN Unavailable Unavailabl e Laura Urrutia RN Unavailable Unavailabl e Encounter Details Date Type Department Care Team (Late st Contact Info) Description 04/28/2024 Patient Risk Score [facility] [place] [address] [facility] [address] [place] [phone] Social History Tobacco Use Types Packs/Day Years Used Date Smoking Tobacco: Every Day Cigarettes 1 28.3 Started: 09/1996 Smokeless Tobacco: Never Alcohol Use Standard Drinks/Week Comments Not Currently 0 (1 standard drink = 0.6 oz pur e alcohol) stopped at age 28 PHQ-2 Answer Date Recorded Patient Health Questionnaire-2 [...] Description 06/11/2025 3:00 PM EST Office Visit [facility] [address] [place] [phone] Kaden Diaz MD [address] [place] [address] documented as of this encounter Visit Diagnoses Not on filedocumented in this encounter Additional Health Concerns Assessment Noted Time A fall risk assessment has been complete d for the patient 01/31/2024 9:06 AM EDT documented as of this encounter Care Teams Plumbers And Top Helpers Relationship Specialty Start Date End Date Dedra Mott MD [address] [place] [address] PCP - General 05/29/22 Monica Damian, STORE KEEPER-BOX CAR WASHER [address] [facility] Department [place] [address] PCP - Eunice JOHNSTONO PCP 05/25/24 Rosalind Pedersen MD [address] [place] [address] Consulting Physician Neurology 04/02/23 Humberto Wong, asphalt patcherBacteriology Research Assistant 11/19/24 11/19/24 Humberto Wong, asphalt patcherBacteriology Research Assistant 11/24/24 11/24/24 Laura Urrutia, asphalt patcherBacteriology Research Assistant 11/26/24 11/26/24 Laura Urrutia, asphalt patcherBacteriology Research Assistant 12/01/24 12/01/24 documented as of this encounter
--- OUTSIDE RECORDS SUMMARY | 2025-01-07 15:20 | XMS_ITS | Encounter Summary ---
Author Organization [facility] Address [address] [place] [address] Phone Care Team Providers Care Rouge Miller Name Role Phone Dedra Mott MD Primary Care Provider [phone] Rosalind Pedersen MD Unavailable [phone] Peña Duncan MARINE ANIMAL TRAINER-METAL ANNEALER Unavailable [phone] Monica Damian N MARINE ANIMAL TRAINER-METAL ANNEALER Unavailable Monica Damian N MARINE ANIMAL TRAINER-METAL ANNEALER Unavailable Monica Damian N MARINE ANIMAL TRAINER-METAL ANNEALER Unavailable Humberto Wong RN Unavailable Unavailable Humberto Wong RN Unavailable Unavailable Laura Urrutia RN Unavailable Unavailabl e Laura Urrutia RN Unavailable Unavailabl e Encounter Details Date Type Department Care Team (Late st Contact Info) Description 03/27/2023 Patient Risk Score ACO Care Management [address] [place] [phone] Social History Tobacco Use Types Packs/Day Years [...] suspected to have Coronavirus/COVID-19? No / Unsure 03/29/2023 8:13 AM EDT documented as of this encounter Plan of Treatment Upcoming Encounters Date Type Department Care Team (Late st Contact Info) Description 06/11/2025 3:00 PM EST Office Visit [facility] [address] [place] [phone] Kaden Diaz MD [address] [place] [address] documented as of this encounter Visit Diagnoses Not on filedocumented in this encounter Additional Health Concerns Infection Onset Date Last Indicated Resolved Time COVID-19 Rule-Out 06/28/2023 06/28/2023 06/28/2023 6:01 AM EST RSV Rule-out 06/28/2023 06/28/2023 06/28/2023 6:01 AM EST COVID-19 Rule-Out 09/11/2023 09/11/2023 09/11/2023 6:38 AM EDT documented as of this encounter Care Teams Rouge Miller Relationship Specialty Start Date End Date Dedra Mott MD [address] [place] [address] PCP - General 05/29/22 Peña Duncan, MARINE ANIMAL TRAINER-METAL ANNEALER [address] [facility] [place] [address] PCP - STAFF DESIGN ENGINEER Medicaid PCP 03/25/23 Monica Damian, MARINE ANIMAL TRAINER-METAL ANNEALER [address] [facility] Department [place] [address] PCP - Eunice ACO PCP 06/25/2309/22 Monica Damian, MARINE ANIMAL TRAINER-METAL ANNEALER [address] [facility] Department [place] [address] PCP - [facility] Medicaid PCP 12/24/23 4 Monica Damian, MARINE ANIMAL TRAINER-METAL ANNEALER [address] [facility] Department [place] [address] PCP - Eunice O PCP 05/25/24 Rosalind Pedersen MD [address] [place] [address] Consulting Physician Neurology 04/02/23 Humberto Wong, garment presserSawsmith 11/19/24 11/19/24 Humberto Wong, garment presserSawsmith 11/24/24 11/24/24 Laura Urrutia, garment presserSawsmith 11/26/24 11/26/24 Laura Urrutia, garment presserSawsmith 12/01/24 12/01/24 documented as of this encounter
--- OUTSIDE RECORDS SUMMARY | 2025-01-07 15:20 | XMS_ITS | Encounter Summary ---
Author Organization [facility] Address [address] [place] [address] Care Team Providers Care Public Relations Analyst Name Role Phone Unavailable Primary Care Provider Unavailabl e Source Comments In the event this information is protected by the Federal Confidentiality of Alcohol and Drug AbusePatient Records regulations: The Federal rules restrict any use of the information to criminally investigate or prosecute any alcohol or drug abuse patient.[facility] Encounter Details Date Type Department Care Team (Late st Contact Info) Description 12/09/2024 Lab Requisition [facility] [address] [place] [address] Bethany Watson, PhD [address] [place] [address] Social History Tobacco Use Types Packs/Day Years Used Date Smoking Tobacco: Former Cigarettes Smokeless Tobacco: Never Comments:10-15 cigs per day Alcohol Use Standard Drinks/Week Comments Not Currently 0 (1 standard drink = 0.6 oz pur e alcohol) [facility] Utilities Answer Date Recorded In [...] place to sleep or slept in a skilled nursing (including now)? Patient unable to answer 01/25/2024 Area Deprivation Index Answer Date Pavan rded National Score (1-100), lower number is lower ri sk 100 11/21/2024 State Score (1-10), lower number is lower risk 1 0 11/21/2024 Data from: https://www.neighborhoodatlas.medicine.[facility].edu/. Last address used for calculation [address] 11/21/2024 Sex and Gender Information Value Date Recorded Sex Assigned at Male 10/19/2018 9:02 PM EDT Legal Sex Male 9:23 AM EST Gender Identity Male 10/19/2018 9:02 PM EDT Sexual Orientation Straight 09/27/2022 10 :36 AM EDT documented as of this encounter Functional Status * Are you deaf or do you have serious difficulty hearing? Answer Date of Assessment Author No 01/26/2024 5:10 PM EDT Camila Rocha RN * Are you blind or do you have serious difficulty seeing, even when wearing glasses? Answer Date of Assessment Author No 01/26/2024 5:10 PM EDT Camila Rocha RN * Do you have serious difficulty walking or climbing stairs? Answer Date of Assessment Author No 01/26/2024 5:10 PM EDT Camila Rocha RN * Do you have difficulty dressing or bathing? Answer Date of Assessment Author No 01/26/2024 5:10 PM EDT Camila Rocha RN * Because of a physical, mental, or emotional condition, do you have difficulty doing errands alone such as visiting a doctor's office or shopping? Answer Date of Assessment Author No 01/26/2024 5:10 PM EDT Camila Rocha RN documented as of this encounter Mental Status * Because of a physical, mental, or emotional condition, do you have serious difficulty concentrating, remembering, or making decisions? Answer Entry Date Author No 01/26/2024 5:10 PM EDT Camila Rocha RN documented in this encounter Plan of Treatment Not on file documented as of this encounter Procedures Procedure Name Priority Date/Time Associated Diagnosis Comments HEPATITIS C VIRUS (HCV) RNA, QUANTITATIVE PCR, PLASMA/SERUM Routine 12/08/2024 11:13 AM EDT documented in this encounter Results * HEPATITIS C VIRUS (HCV) RNA, QUANTITATIVE PCR, PLASMA/SERUM (12/08/2024 11:13 AM EDT) HCV RNA Not detected Not detected MODESTO BRANDEE [address] 12/10/2024 10:10 AM EDT [facility] Blood BLOOD SPECIMEN / Unknown 12/08/2024 11:13 AM EDT 12/09/2024 11:39 PM EDT [facility] - 12/10/2024 10:10 AM EDT brandee HCV is an in vitro nucleic acid [...] Bethany Watson PhD LABORATORY Final Resul t [facility] [address] [facility] [place] [address], [place] documented in this encounter Visit Diagnoses Not on filedocumented in this encounter
--- OUTSIDE RECORDS SUMMARY | 2025-01-07 15:20 | XMS_ITS | Encounter Summary ---
Author Organization [facility] Address [address] [place] [address] Care Team Providers Care Upholstery Sewer Name Role Phone Unavailable Primary Care Provider Unavailabl e Source Comments In the event this information is protected by the Federal Confidentiality of Alcohol and Drug AbusePatient Records regulations: The Federal rules restrict any use of the information to criminally investigate or prosecute any alcohol or drug abuse patient.[facility] Encounter Details Date Type Department Care Team (Late st Contact Info) Description 12/09/2024 Lab Requisition [facility] [address] [place] [address] Bethany Watson, PhD [address] [place] [address] Social History Tobacco Use Types Packs/Day Years Used Date Smoking Tobacco: Former Cigarettes Smokeless Tobacco: Never Comments:10-15 cigs per day Alcohol Use Standard Drinks/Week Comments Not Currently 0 (1 standard drink = 0.6 oz pur e alcohol) [facility] Utilities Answer Date Recorded In the [...] place to sleep or slept in a senior care (including now)? Patient unable to answer 01/25/2024 Area Deprivation Index Answer Date Pavan rded National Score (1-100), lower number is lower ri sk 100 11/21/2024 State Score (1-10), lower number is lower risk 1 0 11/21/2024 Data from: https://www.neighborhoodatlas.medicine.[facility].edu/. Last address used for calculation [address] [...] SCREEN, INCUBATED Routine 12/08/2024 11:43 AM EDT documented in this encounter Results * BLOOD TB SCREEN, INCUBATED (12/08/2024 11:43 AM EDT) TB Nil 0.09 <=8.00 IU/mL 12/11/2024 11:56 AM EDT [facility] TB1 Ag minus Nil 0.07 <0.35 IU/mL 12/11/2024 11:56 AM EDT [facility] TB2 Ag minus Nil 0.06 <0.35 IU/mL 12/11/2024 11:56 AM EDT [facility] TB Result Negative 12/11/2024 11:56 AM EDT [facility] Mitogen minus Nil >9.91 >=0.50 IU/mL 12/11/2024 11:56 AM EDT [facility] TB Gamma Interpretation Infection with M. tuberculosis complex is unlikely. If latent tuberculosis infection is highly suspected, a negative result does not rule out the infection. Specimens from immunocompromised patients and those <5 years of age may show false negative results. In case of a contact investigation, please repeat 8-12 weeks after a known exposure. 12/11/2024 11:56 AM EDT [facility] Blood BLOOD SPECIMEN / Unknown 12/08/2024 11:43 AM EDT 12/10/2024 9:11 PM EDT us Bethany Waston PhD LABORATORY Final Resul t [facility] [address] [facility] [address] [address], [place] documented in this encounter Visit Diagnoses Not on filedocumented in this encounter
--- OUTSIDE RECORDS SUMMARY | 2025-01-07 15:20 | XMS_ITS | Encounter Summary ---
Author Organization [facility] Address [address] [place] [address] Phone Care Team Providers Care Sampler Pickup Name Role Phone Dedra Mott MD Primary Care Provider [phone] Rosalind Pedersen MD Unavailable [phone] Monica Damian DIRECTOR ELECTRONICS-LIFT DRIVER Unavailable Humberto Wong RN Unavailable Unavailable Humberto Wong RN Unavailable Unavailable Laura Urrutia RN Unavailable Unavailabl e Laura Urrutia RN Unavailable Unavailabl e Encounter Details Date Type Department Care Team (Late st Contact Info) Description 03/28/2024 Patient Risk Score [facility] Care Management [address] [facility] [address] [place] [phone] Social History Tobacco Use Types Packs/Day Years [...] suspected to have Coronavirus/COVID-19? No / Unsure 03/19/2024 12:33 PM EDT documented as of this encounter Plan of Treatment Upcoming Encounters Date Type Department Care Team (Late st Contact Info) Description 06/11/2025 3:00 PM EST Office Visit [facility] [address] [place] [phone] Kaden Diaz MD [address] [place] [address] documented as of this encounter Visit Diagnoses Not on filedocumented in this encounter Additional Health Concerns Assessment Noted Time A fall risk assessment has been complete d for the patient 01/31/2024 9:06 AM EDT documented as of this encounter Care Teams Sampler Pickup Relationship Specialty Start Date End Date Dedra Mott MD [address] [place] [address] PCP - General 05/29/22 Monica Damian, DIRECTOR ELECTRONICS-LIFT DRIVER [address] [facility] Department [place] [address] PCP - Eunice ACO PCP 05/25/24 Rosalind Pedersen MD [address] [place] [address] Consulting Physician Neurology 04/02/23 Humberto Wong, seismograph operator helperIntelligence Chief 11/19/24 11/19/24 Humberto Wong, seismograph operator helperIntelligence Chief 11/24/24 11/24/24 Laura Urrutia, seismograph operator helperIntelligence Chief 11/26/24 11/26/24 Laura Urrutia, seismograph operator helperIntelligence Chief 12/01/24 12/01/24 documented as of this encounter
--- OUTSIDE RECORDS SUMMARY | 2025-01-07 15:21 | XMS_ITS | Encounter Summary ---
Author Organization [facility] Address [address] [place] [address] Phone Care Team Providers Care Pre Parole Counseling Aide Name Role Phone Dedra Mott MD Primary Care Provider [phone] Rosalind Pedersen MD Unavailable [phone] Monica Damian LIVESTOCK YARD SUPERVISOR-EXPLOSIVE OPERATOR Unavailable Monica Damian LIVESTOCK YARD SUPERVISOR-EXPLOSIVE OPERATOR Unavailable Monica Damian LIVESTOCK YARD SUPERVISOR-EXPLOSIVE OPERATOR Unavailable Humberto Wong RN Unavailable Unavailable Humberto Wong RN Unavailable Unavailable Laura Urrutia RN Unavailable Unavailabl e Laura Urrutia RN Unavailable Unavailabl e Reason for Visit * Reason Comments Med Refill Encounter Details Date Type Department Care Team (Late st Contact Info) Description 07/16/2023 Refill [facility] [address] [facility] 5th [place] [address] Rosalind Pedersen MD [facility] [facility] [address] [place] [address] Social History Tobacco Use Types Packs/Day Years Used Date Smoking Tobacco: Never Assessed PHQ-2 Answer Date Recorded Patient Health Questionnaire-2 [...] suspected to have Coronavirus/COVID-19? No / Unsure 07/04/2023 8:10 AM EST documented as of this encounter Miscellaneous Notes * Telephone Encounter - Etta Pena MD - 07/16/2023 11:05 AM EST documented in this encounter Plan of Treatment Upcoming Encounters Date Type Department Care Team (Late st Contact Info) Description 06/11/2025 3:00 PM EST Office [facility] [place] [address] [facility] [address] [address] [place] [phone] Kaden Diaz MD [address] [place] [address] documented as of this encounter Visit Diagnoses Not on filedocumented in this encounter Additional Health Concerns Infection Onset Date Last Indicated Resolved Time COVID-19 Rule-Out 09/11/2023 09/11/2023 09/11/2023 6:38 AM EDT Assessment Noted Time A fall risk assessment has been complete d for the patient 06/21/2023 2:31 PM EST documented as of this encounter Care Teams Pre Parole Counseling Aide Relationship Specialty Start Date End Date Dedra Mott MD [address] [place] [address] PCP - General 05/29/22 Monica Damian APRN-EXPLOSIVE OPERATOR [address] [facility] Department [place] [address] PCP - Eunice ROWE PCP 06/25/2309/22 Monica Damian, LIVESTOCK YARD SUPERVISOR-EXPLOSIVE OPERATOR [address] [facility] Department [place] [address] PCP - [facility] Medicaid PCP 12/24/23 4 Monica Damian, LIVESTOCK YARD SUPERVISOR-EXPLOSIVE OPERATOR [address] [facility] Department [place] [address] PCP - Natalybere ACO PCP 05/25/24 Rosalind Pedersen MD [address] [place] [address] Consulting Physician Neurology 04/02/23 Humberto Wong, internal medicine physicianGeneral Labor Forklift Operator 11/19/24 11/19/24 Humberto Wong, internal medicine physicianGeneral Labor Forklift Operator 11/24/24 11/24/24 Laura Urrutia, internal medicine physicianGeneral Labor Forklift Operator 11/26/24 11/26/24 Laura Urrutia, internal medicine physicianGeneral Labor Forklift Operator 12/01/24 12/01/24 documented as of this encounter
--- OUTSIDE RECORDS SUMMARY | 2025-01-07 15:21 | XMS_ITS | Encounter Summary ---
Author Organization [facility] Address [address] [place] [address] Phone Care Team Providers Care Online Marketing Manager Name Role Phone Dedra Mott MD Primary Care Provider [phone] Rosalind Pedersen MD Unavailable [phone] Peña Duncan BLOCKER HEATED METAL FORMS-DIGITAL ENGINEER Unavailable + [phone] Monica Damian BLOCKER HEATED METAL FORMS-DIGITAL ENGINEER Unavailable Monica Damian N BLOCKER HEATED METAL FORMS-DIGITAL ENGINEER Unavailable Monica Damian N BLOCKER HEATED METAL FORMS-DIGITAL ENGINEER Unavailable Humberto Wong RN Unavailable Unavailable Humberto Wong RN Unavailable Unavailable Laura Urrutia RN Unavailable Unavailabl e Laura Urrutia RN Unavailable Unavailabl e Encounter Details Date Type Department Care Team (Late st Contact Info) Description 06/12/2023 Scanned Document [facility] [address] [place] [phone] [place] [address] Department of Neurology [place], [place] [phone] Social History Tobacco Use Types Packs/Day Years [...] suspected to have Coronavirus/COVID-19? No / Unsure 05/28/2023 12:26 PM EST documented as of this encounter Plan of Treatment Upcoming Encounters Date Type Department Care Team (Late st Contact Info) Description 06/11/2025 3:00 PM EST Office Visit [place] [address] [phone] Kaden Diaz MD [facility] Radha Rustam [address] [address] documented as of this encounter Visit Diagnoses Not on filedocumented in this encounter Additional Health Concerns Infection Onset Date Last Indicated Resolved Time COVID-19 Rule-Out 06/28/2023 06/28/2023 06/28/2023 6:01 AM EST RSV Rule-out 06/28/2023 06/28/2023 06/28/2023 6:01 AM EST COVID-19 Rule-Out 09/11/2023 09/11/2023 09/11/2023 6:38 AM EDT documented as of this encounter Care Teams Online Marketing Manager Relationship Specialty Start Date End Date Dedra Mott MD [address] [place] [phone] PCP - General 05/29/22 Peña Duncan, BLOCKER HEATED METAL FORMS-DIGITAL ENGINEER [address] [facility] Department of Neurology [place] [phone] PCP - SUPERVISOR ENGINE REPAIR Medicaid PCP 03/25/23 Monica Damian, BLOCKER HEATED METAL FORMS-DIGITAL ENGINEER [address] [facility] Department [place] [address] PCP - Eunice ACO PCP 06/25/2309/22 Monica Damian APRN-DIGITAL ENGINEER [address] [facility] Department [place] [address] PCP - [facility] Medicaid PCP 12/24/23 4 Monica Damian, BLOCKER HEATED METAL FORMS-DIGITAL ENGINEER [address] [facility] Department [place] [address] PCP - Eunice ACO PCP 05/25/24 Rosalind Pedersen MD [address] [place] [address] Consulting Physician Neurology 04/02/23 Humberto Wong, cleaner carpet and upholsteryHose Seamer 11/19/24 11/19/24 Humberto Wong, cleaner carpet and upholsteryHose Seamer 11/24/24 11/24/24 Laura Urrutia, cleaner carpet and upholsteryHose Seamer 11/26/24 11/26/24 Laura Urrutia, cleaner carpet and upholsteryHose Seamer 12/01/24 12/01/24 documented as of this encounter
--- OUTSIDE RECORDS SUMMARY | 2025-01-07 15:21 | XMS_ITS | Encounter Summary ---
Author Organization [facility] Address [address] [place] [address] Care Team Providers Care Driver Material Handler Name Role Phone Unavailable Primary Care Provider Unavailabl e Source Comments In the event this information is protected by the Federal Confidentiality of Alcohol and Drug AbusePatient Records regulations: The Federal rules restrict any use of the information to criminally investigate or prosecute any alcohol or drug abuse patient.[facility] Encounter Details Date Type Department Care Team (Late st Contact Info) Description 09/13/2021 Lab Requisition [facility] Laboratory [facility] [place] [address] Mario Urrutia, DO [address] [facility] [address] [place] [address] Coronavirus infection, unspecified Social History Tobacco Use Types Packs/Day Years Used Date Smoking Tobacco: Never Assessed PHQ-2 Answer Date Recorded PHQ-2 score 6 08/28/2020 Area Deprivation Index Answer Date Pavan rded National Score (1-100), lower number is lower ri sk Not on file 05/30/2020 State Score (1-10), lower number is lower risk N ot on file 05/30/2020 Data from: https://www.neighborhoodatlas.medicine.[facility]/. Last address used for calculation Not on file 05/30/2020 Sex and Gender Information Value Date Recorded Sex Assigned at Male 10/19/2018 9:02 PM EDT Legal Sex Male 9:23 AM EST Gender Identity Male 10/19/2018 9:02 PM EDT Sexual Orientation Straight 09/27/2022 10 :36 AM EDT documented as of this encounter Plan of Treatment Not on file documented as of this encounter Procedures Procedure Name Priority Date/Time Associated Diagnosis Comments COVID NAAT, UPPER RESPIRATORY, ROUTINE Routine 09/13/2021 11:25 AM EDT Coronavirus infection, unspecified documented in this encounter Results * 2019 CORONAVIRUS (09/13/2021 11:25 AM EDT) SARS-CoV-2 (Agent of COVID-19) RNA SARS-CoV-2 (Agent of COVID-19) Not Detected by RT-PCR or equivalent method. Not Detected 09/14/2021 5:06 AM EDT [facility] Comment: This test was developed and its performance characteristics determined by [facility]'s [facility] [place]. This test has been authorized by FDA under an Emergency Use Authorization (EUA). This test has been validated in accordance with the FDA's Guidance Document Policy for Diagnostics Testing in Laboratories Certified to Perform High Complexity Testing under CLIA prior to Emergency use Authorization for Coronavirus Disease 2019 during the Public Health Emergency issued on August 23, 2019. Test performed by [facility], [facility] [place], [address] [place], [place] [address]. Nasal Swab NASOPHARYNGEAL SWAB / Unknown 09/13/2021 11:25 AM EDT 09/13/2021 9:19 PM EDT Mario Urrutia DO MICROBIOLOGY Final Result [facility] [address] [facility] Desk [address] [place] [address], documented in this encounter Visit Diagnoses Diagnosis Coronavirus infection, unspecified documented in this encounter Additional Health Concerns Infection Onset Date Last Indicated Resolved Time COVID-19 Rule-Out 09/27/2022 09/27/2022 09/27/2022 7:01 PM EDT documented as of this encounter
--- OUTSIDE RECORDS SUMMARY | 2025-01-07 15:21 | XMS_ITS | Encounter Summary ---
Author Organization [facility] Address [address] [place] [address] Phone Care Team Providers Care Inside Sales Trainer Name Role Phone Dedra Mott MD Primary Care Provider [phone] Rosalind Pedersen MD Unavailable [phone] Monica Damian FURNACE TAPPER-QUARTER BACKER Unavailable Monica Damian FURNACE TAPPER-QUARTER BACKER Unavailable Monica Damian FURNACE TAPPER-QUARTER BACKER Unavailable Humberto Wong RN Unavailable Unavailable Humberto Wong RN Unavailable Unavailable Laura Urrutia RN Unavailable Unavailabl e Laura Urrutia RN Unavailable Unavailabl e Reason for Visit * Reason Comments Med Refill Encounter Details Date Type Department Care Team (Late st Contact Info) Description 08/07/2023 Refill [facility] [address] [place] [address] Rosalind Pedersen MD [address] [place] [address] Social History Tobacco Use Types Packs/Day Years [...] suspected to have Coronavirus/COVID-19? No / Unsure 07/30/2023 7:22 AM EST documented as of this encounter Miscellaneous Notes * Telephone Encounter - Etta Pena MD - 08/07/2023 12:53 PM EST refused documented in this encounter Plan of Treatment Upcoming Encounters Date Type Department Care Team (Late st Contact Info) Description 06/11/2025 3:00 PM EST Office Visit [facility] [address] [place] [phone] Kaden Diaz MD [facility] [address] [place] [address] documented as of this encounter Visit Diagnoses Not on filedocumented in this encounter Additional Health Concerns Infection Onset Date Last Indicated Resolved Time COVID-19 Rule-Out 09/11/2023 09/11/2023 09/11/2023 6:38 AM EDT Assessment Noted Time A fall risk assessment has been complete d for the patient 06/21/2023 2:31 PM EST documented as of this encounter Care Teams Inside Sales Trainer Relationship Specialty Start Date End Date Dedra Mott MD [address] [place] [address] PCP - General 05/29/22 Monica Damian APRN-QUARTER BACKER [address] [facility] Department [place] [address] PCP - Eunice ROWE PCP 06/25/2309/22 Monica Damian, FURNACE TAPPER-QUARTER BACKER [address] [facility] Department [place] [address] PCP - [facility] Medicaid PCP 12/24/23 4 Monica Damian, FURNACE TAPPER-QUARTER BACKER [address] [facility] Department [place] [address] PCP - Eunice O PCP 05/25/24 Rosalind Pedersen MD [address] [place] [address] Consulting Physician Neurology 04/02/23 Humberto Wong, data compilerSpot Worker 11/19/24 11/19/24 Humberto Wong data compilerSpot Worker 11/24/24 11/24/24 Laura Urrutia, data compilerSpot Worker 11/26/24 11/26/24 Laura Urrutia, data compilerSpot Worker 12/01/24 12/01/24 documented as of this encounter
--- OUTSIDE RECORDS SUMMARY | 2025-01-07 15:21 | XMS_ITS ---
Author Organization [facility] Address [address] [place] [address] Phone Care Team Providers Care Import Coordination And Production Head Name Role Phone Dedra Mott MD Primary Care Provider [phone] Rosalind Pedersen MD Unavailable [phone] Monica Damian CUT FILER-WOUND/OSTOMY CLINICAL NURSE SPECIALIST Unavailable [facility] [place] [facility] Status:Active (Enrolling) Start date:10/19/2024 Related social drivers of health:Intimate Partner Violence, Social Connections, Alcohol Use, Tobacco Use, Financial Resource Strain,Stress, Physical Activity, Food Insecurity, Transportation Needs, Housing Stability, Utilities, Digital Equity Continued Care and Services Coordination
--- OUTSIDE RECORDS SUMMARY | 2025-01-07 15:21 | XMS_ITS | Encounter Summary ---
Author Organization [facility] Address [address] [place] [address] Phone Care Team Providers Care Marketing Database Analyst Name Role Phone Dedra Mott MD Primary Care Provider [phone] Rosalind Pedersen MD Unavailable [phone] Monica Damian GRAIN MILL PRODUCTS INSPECTOR-INFORMATION SECURITY OFFICER Unavailable Monica Damian GRAIN MILL PRODUCTS INSPECTOR-INFORMATION SECURITY OFFICER Unavailable Monica Damian GRAIN MILL PRODUCTS INSPECTOR-INFORMATION SECURITY OFFICER Unavailable Humberto Wong RN Unavailable Unavailable Humberto Wong RN Unavailable Unavailable Laura Urrutia RN Unavailable Unavailabl e Laura Urrutia RN Unavailable Unavailabl e Reason for Visit * Reason Comments Med Refill Encounter Details Date Type Department Care Team (Late st Contact Info) Description 07/19/2023 Refill [facility] [address] [facility] 5th [place] [address] Rosalind Pedersen MD [address] [facility] [address] [place] [address] Social History Tobacco Use Types Packs/Day Years [...] encounter Miscellaneous Notes * Telephone Encounter - Rosalind Pedersen MD - 07/19/2023 2:37 PM EST Go see pcp documented in this encounter Plan of Treatment Upcoming Encounters Date Type Department Care Team (Late st Contact Info) Description 06/11/2025 3:00 PM EST Office Visit [place] [address] [facility] [address] [place] [phone] Kaden Diaz MD [facility] [address] [place] [address] documented as of this encounter Visit Diagnoses Not on filedocumented in this encounter Additional Health Concerns Infection Onset Date Last Indicated Resolved Time COVID-19 Rule-Out 09/11/2023 09/11/2023 09/11/2023 6:38 AM EDT Assessment Noted Time A fall risk assessment has been complete d for the patient 06/21/2023 2:31 PM EST documented as of this encounter Care Teams Marketing Database Analyst Relationship Specialty Start Date End Date Dedra Mott MD [address] [place] [address] PCP - General 05/29/22 Monica Damian APRN-INFORMATION SECURITY OFFICER [address] [facility] Department [place] [address] PCP - Eunice ROWE PCP 06/25/2309/22 Monica Damian, GRAIN MILL PRODUCTS INSPECTOR-INFORMATION SECURITY OFFICER [address] [facility] Department [place] [address] PCP - [facility] Medicaid PCP 12/24/23 4 Monica Damian, GRAIN MILL PRODUCTS INSPECTOR-INFORMATION SECURITY OFFICER [address] [address] [facility] Department [place] [address] [facility] P[facility] 05/25/24 Rosalind Pedersen MD [address] [place] [address] Consulting Physician Neurology 04/02/23 Humberto Wong, chief librarian extension departmentBrand Sales Manager 11/19/24 11/19/24 Humberto Wong chief librarian extension departmentBrand Sales Manager 11/24/24 11/24/24 Laura Urrutia, chief librarian extension departmentBrand Sales Manager 11/26/24 11/26/24 Laura Urrutia, chief librarian extension departmentBrand Sales Manager 12/01/24 12/01/24 documented as of this encounter
--- OUTSIDE RECORDS SUMMARY | 2025-01-07 15:21 | XMS_ITS | Encounter Summary ---
Author Organization [facility] Address [address] [place] [address] Phone Care Team Providers Care Production Specialist Name Role Phone Dedra Mott MD Primary Care Provider [phone] Rosalind Pedersen MD Unavailable [phone] Peña Duncan ENGINEERING DESIGN MANAGER-CORRECTIVE THERAPIST Unavailable [phone] Monica Damian N ENGINEERING DESIGN MANAGER-CORRECTIVE THERAPIST Unavailable Monica Damian N ENGINEERING DESIGN MANAGER-CORRECTIVE THERAPIST Unavailable Monica Damian N ENGINEERING DESIGN MANAGER-CORRECTIVE THERAPIST Unavailable Humberto Wong RN Unavailable Unavailable Humberto Wong RN Unavailable Unavailable Laura Urrutia RN Unavailable Unavailabl e Laura Urrutia RN Unavailable Unavailabl e Encounter Details Date Type Department Care Team (Late st Contact Info) Description 04/27/2023 Patient Risk Score [facility] [address] [place] [address] Social History Tobacco Use Types [...] Description 06/11/2025 3:00 PM EST Office Visit [facility] [address] [place] [phone] Kaden Diaz MD [address] [place] [address] documented as of this encounter Visit Diagnoses Not on filedocumented in this encounter Additional Health Concerns Infection Onset Date Last Indicated Resolved Time COVID-19 Rule-Out 06/28/2023 06/28/2023 06/28/2023 6:01 AM EST RSV Rule-out 06/28/2023 06/28/2023 06/28/2023 6:01 AM EST COVID-19 Rule-Out 09/11/2023 09/11/2023 09/11/2023 6:38 AM EDT documented as of this encounter Care Teams Production Specialist Relationship Specialty Start Date End Date Dedra Mott MD [address] [place] [address] PCP - General 05/29/22 Peña Duncan, ENGINEERING DESIGN MANAGER-CORRECTIVE THERAPIST [address] [facility] [place] [address] PCP - INSPECTOR PAWNSHOP DETAIL Medicaid PCP 03/25/23 Monica Damian, ENGINEERING DESIGN MANAGER-CORRECTIVE THERAPIST [address] [facility] Department [place] [address] PCP - Eunice ACO PCP 06/25/2309/22 Monica Damian, ENGINEERING DESIGN MANAGER-CORRECTIVE THERAPIST [address] [facility] Department [place] [address] PCP - [facility] Medicaid PCP 12/24/23 4 Monica Damian, ENGINEERING DESIGN MANAGER-CORRECTIVE THERAPIST [address] [facility] Department [place] [address] PCP - Eunice O PCP 05/25/24 Rosalind Pedersen MD [address] [place] [address] Consulting Physician Neurology 04/02/23 Humberto Wong, supervisor forming and temperingBoiler Reliner 11/19/24 11/19/24 Humberto Wong, supervisor forming and temperingBoiler Reliner 11/24/24 11/24/24 Laura Urrutia, supervisor forming and temperingBoiler Reliner 11/26/24 11/26/24 Laura Urrutia, supervisor forming and temperingBoiler Reliner 12/01/24 12/01/24 documented as of this encounter
--- OUTSIDE RECORDS SUMMARY | 2025-01-07 15:21 | XMS_ITS | Encounter Summary ---
Author Organization [facility] Address [address] [place] [address] Phone Care Team Providers Care Retail Event And Sales Assistant Name Role Phone Dedra Mott MD Primary Care Provider [phone] Rosalind Pedersen MD Unavailable [phone] Monica Damian FAGOT HEATER HELPER-STORE OPERATIONS SPECIALIST Unavailable Laura Urrutia RN Unavailable Unavailabl e Laura Urrutia RN Unavailable Unavailabl e Encounter Details Date Type Department Care Team (Late st Contact Info) Description 11/26/2024 Patient Risk Score AC Care Management [address] [place] [phone] Social History Tobacco Use Types Packs/Day Years Used Date Smoking Tobacco: Every Day Cigarettes 1 28.3 Started: 09/1996 Smokeless Tobacco: Never Alcohol Use Standard Drinks/Week Comments Not Currently 0 (1 standard drink = 0.6 oz pur e alcohol) stopped at age 28 [facility] Utilities Answer Date Recorded In [...] any time in the past [address] [facility], were you homeless or living in a residential (including now)? No 11/22/2024 Sex and Gender [...] suspected to have Coronavirus/COVID-19? No / Unsure 11/23/2024 8:26 PM EDT documented as of this encounter Plan of Treatment Upcoming Encounters Date Type Department Care Team (Late st Contact Info) Description 06/11/2025 3:00 PM EST Office Visit [place] [address] [place] [phone] Kaden Diaz MD [facility] [address] [place] [address] documented as of this encounter Visit Diagnoses Not on filedocumented in this encounter Additional Health Concerns Assessment Noted Time A fall risk assessment has been complete d for the patient 01/31/2024 9:06 AM EDT documented as of this encounter Care Teams Retail Event And Sales Assistant Relationship Specialty Start Date End Date Dedra Mott MD [address] [place] [address] PCP - General 05/29/22 Monica Damian, FAGOT HEATER HELPER-STORE OPERATIONS SPECIALIST [address] [facility] Department [place] [address] PCP - Natalybere ACO PCP 05/25/24 Rosalind Pedersen MD [address] [place] [address] Consulting Physician Neurology 04/02/23 Laura Urrutia, artist's modelOil Sprayer 11/26/24 11/26/24 Laura Urrutia, artist's modelOil Sprayer 12/01/24 12/01/24 documented as of this encounter
--- OUTSIDE RECORDS SUMMARY | 2025-01-07 15:21 | XMS_ITS | Encounter Summary ---
Author Organization [facility] Address [address] [place] [address] Phone Care Team Providers Care Diamond Sorter Name Role Phone Dedra Mott MD Primary Care Provider [phone] Rosalind Pedersen MD Unavailable [phone] Monica Damian WIRE DRAWING SETTER-PRIMING MIXTURE CARRIER Unavailable Monica Damian WIRE DRAWING SETTER-PRIMING MIXTURE CARRIER Unavailable Monica Damian WIRE DRAWING SETTER-PRIMING MIXTURE CARRIER Unavailable Humberto Wong RN Unavailable Unavailable Humberto Wong RN Unavailable Unavailable Laura Urrutia RN Unavailable Unavailabl e Laura Urrutia RN Unavailable Unavailabl e Encounter Details Date Type Department Care Team (Late st Contact Info) Description 06/27/2023 Patient Risk Score ACO Care Management [address] [place] [phone] Social History Tobacco Use Types Packs/Day Years [...] suspected to have Coronavirus/COVID-19? No / Unsure 06/27/2023 7:30 PM EST documented as of this encounter Functional Status * Calculated C-SSRS Risk Score (Lifetime/Recent) Answer Date of Assessment Author No Risk Indicated 06/27/2023 7:30 PM EST Bernadine Adler RN * [place] Suicide Severity Rating Scale (Screener/Recent Self-Report) Question Answer Date of Assessment Author 1. Wish to be (Past 1 Month) No 024 7:30 PM Bernadine Lombardo RN 2. Non-Specific Active Suici katelyn Thoughts (Past 1 Month) No 06/27/2023 7:30 PM EST Jermain Adler RN 6. Suicidal Behavior (Lifetime) No 7:30 PM EST Bernadine Adler RN documented as of this encounter Plan of Treatment Upcoming Encounters Date Type Department Care Team (Late st Contact Info) Description 06/11/2025 3:00 PM EST Office Visit [place] [address] [address] [place] [phone] Kaden Diaz MD [facility] [address] [facility] [address] [place], [place] [phone] documented as of this encounter Visit Diagnoses [...] documented as of this encounter Care Teams Diamond Sorter Relationship Specialty Start Date End Date Dedra Mott MD [address] [facility] [place]note 2], [place] [address] PCP - General 05/29/22 Monica Damian APRN-PRIMING MIXTURE CARRIER [address] [facility] Department [place] [address] PCP - Eunice ACO PCP 06/25/2309/22 Monica Damian APRN-PRIMING MIXTURE CARRIER [address] [facility] Department [place] [address] PCP - [facility] Medicaid PCP 12/24/23 Monica Damian APRN-PRIMING MIXTURE CARRIER [address] [facility] Department [place] [address] PCP - Eunice ACO PCP 05/25/24 Rosalind Pedersen MD [address] [place] [address] Consulting Physician Neurology 04/02/23 Humberto Wong, mercerizer machine operatorHistorical Manuscripts Curator 11/19/24 11/19/24 Humberto Wong RN Care Historical Manuscripts Curator 11/24/24 11/24/24 Laura Urrutia, mercerizer machine operatorHistorical Manuscripts Curator 11/26/24 11/26/24 Laura Urrutia, mercerizer machine operatorHistorical Manuscripts Curator 12/01/24 12/01/24 documented as of this encounter
--- OUTSIDE RECORDS SUMMARY | 2025-01-07 15:21 | XMS_ITS | Encounter Summary ---
Author Organization [facility] Address [address] [place] [address] Phone Care Team Providers Care Weaving Machine Operator Name Role Phone Dedra Mott MD Primary Care Provider [phone] Rosalind Pedersen MD Unavailable [phone] Monica Damian TAPE CALENDER-SPOOLER OPERATOR Unavailable Monica Damian TAPE CALENDER-SPOOLER OPERATOR Unavailable Monica Damian TAPE CALENDER-SPOOLER OPERATOR Unavailable Humberto Wong RN Unavailable Unavailable Humberto Wong RN Unavailable Unavailable Laura Urrutia RN Unavailable Unavailabl e Laura Urrutia RN Unavailable Unavailabl e Encounter Details Date Type Department Care Team (Late st Contact Info) Description 07/31/2023 Scanned Document [facility] [address] [facility] 5th [place] [phone] [place] [address] Department of Neurology [place], [place] [phone] Social History Tobacco Use Types Packs/Day Years [...] AM EST documented as of this encounter Plan of Treatment Upcoming Encounters Date Type Department Care Team (Late st Contact Info) Description 06/11/2025 3:00 PM EST Office Visit [place] [address] [place] [phone] Kaden Diaz MD [facility] [address] [place] [address] documented as of this encounter Visit Diagnoses Not on filedocumented in this encounter Additional Health Concerns Infection Onset Date Last Indicated Resolved Time COVID-19 Rule-Out 09/11/2023 09/11/2023 09/11/2023 6:38 AM EDT Assessment Noted Time A fall risk assessment has been complete d for the patient 06/21/2023 2:31 PM EST documented as of this encounter Care Teams Weaving Machine Operator Relationship Specialty Start Date End Date Dedra Mott MD [address] [place] [address] PCP - General 05/29/22 Monica Damian APRN-SPOOLER OPERATOR [address] [facility] Department [place] [address] PCP - Natalysobere ACO PCP 06/25/2309/22 Monica Damian APRN-SPOOLER OPERATOR [address] Department [place] [address] PCP - BOND TRADER Medicaid PCP 12/24/23 4 Monica Damian, TAPE CALENDER-SPOOLER OPERATOR [address] [facility] Department [place] [address] PCP - Eunice O PCP 05/25/24 Rosalind Pedersen MD [address] [place] [address] Consulting Physician Neurology 04/02/23 Humberto Wong, pierce and shave press operatorAssembly Line Inspector 11/19/24 11/19/24 Humberto Wong, pierce and shave press operatorAssembly Line Inspector 11/24/24 11/24/24 Laura Urrutia, pierce and shave press operatorAssembly Line Inspector 11/26/24 11/26/24 Laura Urrutia, pierce and shave press operatorAssembly Line Inspector 12/01/24 12/01/24 documented as of this encounter
--- OUTSIDE RECORDS SUMMARY | 2025-01-07 15:21 | XMS_ITS | Encounter Summary ---
Author Organization [facility] Address [address] [place] [address] Phone Care Team Providers Care Mulling Machine Operator Name Role Phone Dedra Mott MD Primary Care Provider [phone] Rosalind Pedersen MD Unavailable [phone] Peña Duncan AUTOMOBILE ACCESSORIES SALESPERSON-ELECTRICAL EQUIPMENT ASSEMBLER Unavailable [phone] Monica Damian N AUTOMOBILE ACCESSORIES SALESPERSON-ELECTRICAL EQUIPMENT ASSEMBLER Unavailable Monica Damian N AUTOMOBILE ACCESSORIES SALESPERSON-ELECTRICAL EQUIPMENT ASSEMBLER Unavailable Monica Damian N AUTOMOBILE ACCESSORIES SALESPERSON-ELECTRICAL EQUIPMENT ASSEMBLER Unavailable Humberto Wong RN Unavailable Unavailable Humberto Wong RN Unavailable Unavailable Laura Urrutia RN Unavailable Unavailabl e Laura Urrutia RN Unavailable Unavailabl e Encounter Details Date Type Department Care Team (Late st Contact Info) Description 05/04/2023 Scanned Document [facility] [address] [place] [address] Conversion, Onbase Social History Tobacco Use Types [...] Description 06/11/2025 3:00 PM EST Office Visit [facility] [address] [facility] [address] [place] [phone] Kaden Diaz MD [address] [facility] [address] [place] [address] documented as of this encounter Visit Diagnoses Not on filedocumented in this encounter Additional Health Concerns Infection Onset Date Last Indicated Resolved Time COVID-19 Rule-Out 06/28/2023 06/28/2023 06/28/2023 6:01 AM EST RSV Rule-out 06/28/2023 06/28/2023 06/28/2023 6:01 AM EST COVID-19 Rule-Out 09/11/2023 09/11/2023 09/11/2023 6:38 AM EDT documented as of this encounter Care Teams Mulling Machine Operator Relationship Specialty Start Date End Date Dedra Mott MD [address] [place] [phone] PCP - General 05/29/22 Peña Duncan APRN-ELECTRICAL EQUIPMENT ASSEMBLER [address] [facility] [place] [address] PCP - [facility] Medicaid PCP 03/25/23 Monica Damian AUTOMOBILE ACCESSORIES SALESPERSON-ELECTRICAL EQUIPMENT ASSEMBLER [address] [facility] Department [place] [address] PCP - Eunice ACO PCP 06/25/2309/22 Monica Damian AUTOMOBILE ACCESSORIES SALESPERSON-ELECTRICAL EQUIPMENT ASSEMBLER [address] [facility] Department [place] [address] PCP - [facility] Medicaid PCP 12/24/23 4 Monica Damian, AUTOMOBILE ACCESSORIES SALESPERSON-ELECTRICAL EQUIPMENT ASSEMBLER [address] [facility] Department [place] [address] PCP - Eunice JOHNSTONO PCP 05/25/24 Rosalind Pedersen MD [address] [place] [address] Consulting Physician Neurology 04/02/23 Humberto Wong, multimedia programmerGeothermal Field Technician 11/19/24 11/19/24 Humberto Wong, multimedia programmerGeothermal Field Technician 11/24/24 11/24/24 Laura Urrutia, multimedia programmerGeothermal Field Technician 11/26/24 11/26/24 Laura Urrutia, multimedia programmerGeothermal Field Technician 12/01/24 12/01/24 documented as of this encounter
--- OUTSIDE RECORDS SUMMARY | 2025-01-07 15:21 | XMS_ITS | Encounter Summary ---
Author Organization [facility] Address [address] [place] [address] Care Team Providers Care Staffing Administrator Name Role Phone OsmanikaceyRenae matthewa Primary Care Provider Unavail able Source Comments In the event this information is protected by the Federal Confidentiality of Alcohol and Drug AbusePatient Records regulations: The Federal rules restrict any use of the information to criminally investigate or prosecute any alcohol or drug abuse patient.[facility] Encounter Details Date Type Department Care Team (Late st Contact Info) Description 01/29/2018 Get Medical Advice Gastroenterology [address] [place] [address] [place] [address] [address] RE: Test Result Question Social History Tobacco Use Types Packs/Day Years Used Date Smoking Tobacco: Every Day Cigarettes Smokeless Tobacco: Never Alcohol Use Standard Drinks/Week Comments Yes 0 (1 standard drink = 0.6 oz pur e alcohol) Sex and Gender Information Value Date Recorded Sex Assigned at Male 10/19/2018 9:02 PM EDT Legal Sex Male 9:23 AM EST Gender Identity Male 10/19/2018 9:02 PM EDT Sexual Orientation Straight 09/27/2022 10 :36 AM EDT documented as of this encounter Plan of Treatment Not on file documented as of this encounter Visit Diagnoses Not on filedocumented in this encounter Additional Health Concerns Infection Onset Date Last Indicated Resolved Time COVID-19 Rule-Out 04/23/2020 04/23/2020 04/23/2020 5:24 PM EDT COVID-19 Rule-Out 06/03/2020 06/03/2020 06/03/2020 1:39 PM EST COVID-19 Rule-Out 09/27/2022 09/27/2022 09/27/2022 7:01 PM EDT documented as of this encounter Care Teams Staffing Administrator Relationship Specialty Start Date End Date Precious Avendano DO PCP - General Family Medicine 07/05/16 04/22/20 documented as of this encounter
--- OUTSIDE RECORDS SUMMARY | 2025-01-07 15:21 | XMS_ITS | Encounter Summary ---
Author Organization [facility] Address [facility] [place] [address] Care Team Providers Care Head Shipper Name Role Phone Unavailable Primary Care Provider Unavailabl e Source Comments In the event this information is protected by the Federal Confidentiality of Alcohol and Drug AbusePatient Records regulations: The Federal rules restrict any use of the information to criminally investigate or prosecute any alcohol or drug abuse patient.[facility] Encounter Details Date Type Department Care Team (Late st Contact Info) Description 10/30/2020 Patient Msg Neurology [address] [place] [address] Jose De Jesus Desir, DO [address] [place] [phone] RE: Request an Appointment Social History Tobacco Use Types Packs/Day Years Used Date Smoking Tobacco: Every Day Cigarettes Smokeless Tobacco: Never Comments:10-15 cigs per day Alcohol Use Standard Drinks/Week Comments Not Currently 0 (1 standard drink = 0.6 oz pur e alcohol) PHQ-2 Answer Date Recorded PHQ-2 score 6 08/28/2020 Area Deprivation Index Answer Date Pavan rded National Score (1-100), lower number is lower ri sk Not on file 05/30/2020 State Score (1-10), lower number is lower risk N ot on file 05/30/2020 Data from: https://www.neighborhoodatlas.medicine.[facility].edu/. Last address used for calculation Not on [...]
--- OUTSIDE RECORDS SUMMARY | 2025-01-07 15:21 | XMS_ITS | Encounter Summary ---
Author Organization [facility] Address [address] [place] [address] Phone Care Team Providers Care Maintenance Of Way Superintendent Name Role Phone Dedra Mott MD Primary Care Provider [phone] Rosalind Pedersen MD Unavailable [phone] Peña Duncan N PRESS SET UP-OCTAVE BOARD ASSEMBLER Unavailable Monica Damian PRESS SET UP-OCTAVE BOARD ASSEMBLER Unavailable Monica Damian PRESS SET UP-OCTAVE BOARD ASSEMBLER Unavailable Monica Damian N PRESS SET UP-OCTAVE BOARD ASSEMBLER Unavailable Humberto Wong RN Unavailable Unavailable Humberto Wong RN Unavailable Unavailable Laura Urrutia RN Unavailable Unavailabl e Laura Urrutia RN Unavailable Unavailabl e Reason for Visit * Reason Comments Med Refill Encounter Details Date Type Department Care Team (Late st Contact Info) Description 06/24/2023 Refill [facility] [address] [facility] 5th [place] [address] Rosalind Pedersen MD [address] [place] [address] Myoclonus Social History Tobacco Use Types Packs/Day Years [...] Author No Risk Indicated 06/27/2023 7:30 PM Bernadine Lombardo RN * [place] Suicide Severity Rating Scale (Screener/Recent Self-Report) Question Answer Date of Assessment Author 1. Wish to be (Past 1 Month) No 024 7:30 PM Bernadine Lombardo RN 2. Non-Specific Active Suici katelyn Thoughts (Past 1 Month) No 06/27/2023 7:30 PM EST Jermain Adler RN 6. Suicidal Behavior (Lifetime) No 7:30 PM Bernadine Lombardo RN documented as of this encounter Miscellaneous Notes * Telephone Encounter - Rosalind Pedersen MD - 06/26/2023 1:30 PM EST Go to pcp documented in this encounter Plan of Treatment Upcoming Encounters Date Type Department Care Team (Late st Contact Info) Description 06/11/2025 3:00 PM EST Office Visit [facility] [address] [facility] [address] [place] [address] Kaden Diaz MD [address] [facility] [address] [place] [address] documented as of this encounter Visit Diagnoses Diagnosis Myoclonus documented in this encounter Additional Health Concerns Infection Onset Date Last Indicated Resolved Time COVID-19 Rule-Out 06/28/2023 06/28/2023 06/28/2023 6:01 AM EST RSV Rule-out 06/28/2023 06/28/2023 06/28/2023 6:01 AM EST COVID-19 Rule-Out 09/11/2023 09/11/2023 09/11/2023 6:38 AM EDT Assessment Noted Time A fall risk assessment has been complete d for the patient 06/21/2023 2:31 PM EST documented as of this encounter Care Teams Maintenance Of Way Superintendent Relationship Specialty Start Date End Date Dedra Mott MD [address] [place] [address] PCP - General 05/29/22 Peña Duncan PRESS SET UP-OCTAVE BOARD ASSEMBLER [address] [facility] Department [place] [address] PCP - [facility] Medicaid PCP 03/25/23 Monica Damian PRESS SET UP-OCTAVE BOARD ASSEMBLER [address] [facility] Department [place] [address] PCP - [employer] ACO PCP 06/25/2309/22 Monica Damian PRESS SET UP-OCTAVE BOARD ASSEMBLER [address] [facility] [place] [address] PCP - ASSISTANT BRAND MANAGER Medicaid PCP 12/24/2303/24/ 4 Monica Damian PRESS SET UP-OCTAVE BOARD ASSEMBLER [address] [facility] Department [place] [address] PCP - [employer] ACO PCP 05/25/24 Rosalind Pedersen MD [address] [facility] [place] [address] Consulting Physician Neurology 04/02/23 Humberto Wong, hand method lasting machine operatorGround Wood Supervisor 11/19/24 11/19/24 Humberto Wong hand method lasting machine operatorGround Wood Supervisor 11/24/24 11/24/24 Laura Urrutia, hand method lasting machine operatorGround Wood Supervisor 11/26/24 11/26/24 Laura Urrutia, hand method lasting machine operatorGround Wood Supervisor 12/01/24 12/01/24 documented as of this encounter
--- OUTSIDE RECORDS SUMMARY | 2025-01-07 15:21 | XMS_ITS | Encounter Summary ---
Author Organization [facility] Address [address] [place] [address] Care Team Providers Care Boat Outfitting Supervisor Name Role Phone Unavailable Primary Care Provider Unavailabl e Source Comments In the event this information is protected by the Federal Confidentiality of Alcohol and Drug AbusePatient Records regulations: The Federal rules restrict any use of the information to criminally investigate or prosecute any alcohol or drug abuse patient.[facility] Encounter Details Date Type Department Care Team (Late st Contact Info) Description 09/27/2021 Lab Requisition [facility] [place] [address] Mario Urrutia, DO [address] [facility] [address] [place] [address] Coronavirus infection, unspecified Social History Tobacco Use [...] N ot on file 05/30/2020 Data from: https://www.neighborhoodatlas.[facility]/. Last address used for calculation Not on [...] Comments COVID NAAT, UPPER RESPIRATORY, ROUTINE Routine 09/27/2021 11:09 AM EDT Coronavirus infection, unspecified documented in this encounter Results * 2019 CORONAVIRUS (09/27/2021 11:09 AM EDT) SARS-CoV-2 (Agent of COVID-19) RNA SARS-CoV-2 (Agent of COVID-19) Not Detected by RT-PCR or equivalent method. Not Detected 09/28/2021 11:38 AM EDT [facility] Comment: This test was developed and its performance characteristics determined by [facility]'s [facility] [place]. This test has been authorized by FDA under an Emergency Use Authorization (EUA). This test has been validated in accordance with the FDA's Guidance Document Policy for Diagnostics Testing in Laboratories Certified to Perform High Complexity Testing under CLIA prior to Emergency use Authorization for Coronavirus Disease 2019 during the Public Health Emergency issued on August 23, 2019. Test performed by [facility], [facility] Pathology [facility] Laboratory Medicine [place], [address] [place] [address]. Nasal Swab NASOPHARYNGEAL SWAB / Unknown 09/27/2021 11:09 AM EDT 09/28/2021 2:44 AM EDT us Mario Urrutia DO MICROBIOLOGY Final Result Performing Organization Address City/State/[facility] Co de Phone Number [facility] [address] [address], documented in this encounter Visit Diagnoses Diagnosis Coronavirus infection, unspecified documented in this encounter Additional Health Concerns Infection Onset Date Last Indicated Resolved Time COVID-19 Rule-Out 09/27/2022 09/27/2022 09/27/2022 7:01 PM EDT documented as of this encounter
--- OUTSIDE RECORDS SUMMARY | 2025-01-07 15:21 | XMS_ITS | Encounter Summary ---
Author Organization [facility] Address [address] [place] [address] Care Team Providers Care Systems Specialist Name Role Phone OsmanikaceyRenae matthewa Primary Care Provider Unavail able Source Comments In the event this information is protected by the Federal Confidentiality of Alcohol and Drug AbusePatient Records regulations: The Federal rules restrict any use of the information to criminally investigate or prosecute any alcohol or drug abuse patient.[facility] Encounter Details Date Type Department Care Team (Late st Contact Info) Description 05/12/2019 Patient Msg Radiology [address] [phone] Provider, Naima Your upcoming MRI with anesthesia Social History Tobacco Use Types Packs/Day Years Used Date Smoking Tobacco: Every Day Cigarettes Smokeless Tobacco: Never Comments:10-15 cigs per day Alcohol Use Standard Drinks/Week Comments Not Currently 0 (1 standard drink = 0.6 oz pur e alcohol) PHQ-2 Answer Date Recorded PHQ-2 Score 4 05/03/2019 Sex and Gender Information Value Date Recorded [...] documented as of this encounter Care Teams Systems Specialist Relationship Specialty Start Date End Date Precious Avendano DO PCP - General Family Medicine 07/05/16 04/22/20 documented as of this encounter
--- OUTSIDE RECORDS SUMMARY | 2025-01-07 15:21 | XMS_ITS | Encounter Summary ---
Author Organization [facility] Address [address] [place] [address] Phone Care Team Providers Care Sales Executive Name Role Phone Dedra Mott MD Primary Care Provider [phone] Rosalind Pedersen MD Unavailable [phone] Peña Duncan SALES TEACHER-CLIENT SUCCESS DIRECTOR Unavailable [phone] Monica Damian N SALES TEACHER-CLIENT SUCCESS DIRECTOR Unavailable Monica Damian N SALES TEACHER-CLIENT SUCCESS DIRECTOR Unavailable Monica Damian N SALES TEACHER-CLIENT SUCCESS DIRECTOR Unavailable Humberto Wong RN Unavailable Unavailable Humberto Wong RN Unavailable Unavailable Laura Urrutia RN Unavailable Unavailabl e Laura Urrutia RN Unavailable Unavailabl e Encounter Details Date Type Department Care Team (Late st Contact Info) Description 05/27/2023 Patient Risk Score ACO Care Management [address] [place] [address] Social History Tobacco Use Types [...] Description 06/11/2025 3:00 PM EST Office Visit [facility] [address] [place] [phone] Kaden Diaz MD [address] [place] [address] documented as of this encounter Visit Diagnoses Not on filedocumented in this encounter Additional Health Concerns Infection Onset Date Last Indicated Resolved Time COVID-19 Rule-Out 06/28/2023 06/28/2023 06/28/2023 6:01 AM EST RSV Rule-out 06/28/2023 06/28/2023 06/28/2023 6:01 AM EST COVID-19 Rule-Out 09/11/2023 09/11/2023 09/11/2023 6:38 AM EDT documented as of this encounter Care Teams Sales Executive Relationship Specialty Start Date End Date Dedra Mott MD [address] [place] [address] PCP - General 05/29/22 Peña Duncan, SALES TEACHER-CLIENT SUCCESS DIRECTOR [address] [facility] [place] [address] PCP - UROGYNAECOLOGIST Medicaid PCP 03/25/23 Monica Damian SALES TEACHER-CLIENT SUCCESS DIRECTOR [address] [facility] Department [place] [address] PCP - Eunice ACO PCP 06/25/2309/22 Monica Damian, SALES TEACHER-CLIENT SUCCESS DIRECTOR [address] [facility] Department [place] [address] PCP - [facility] Medicaid PCP 12/24/2303/24/ 4 Monica Damian, SALES TEACHER-CLIENT SUCCESS DIRECTOR [address] [facility] Department [place] [address] PCP - Natalybere O PCP 05/25/24 Rosalind Pedersen MD [address] [place] [address] Consulting Physician Neurology 04/02/23 Humberto Wong, air hammer stripperWellness Trainer 11/19/24 11/19/24 Humberto Wong, air hammer stripperWellness Trainer 11/24/24 11/24/24 Laura Urrutia, air hammer stripperWellness Trainer 11/26/24 11/26/24 Laura Urrutia, air hammer stripperWellness Trainer 12/01/24 12/01/24 documented as of this encounter
--- OUTSIDE RECORDS SUMMARY | 2025-01-07 15:21 | XMS_ITS | Encounter Summary ---
Author Organization [facility] Address [address] [place] [address] Care Team Providers Care Marketing Program Coordinator Name Role Phone OsmanikaceyRenae matthewa Primary Care Provider Unavail able Source Comments In the event this information is protected by the Federal Confidentiality of Alcohol and Drug AbusePatient Records regulations: The Federal rules restrict any use of the information to criminally investigate or prosecute any alcohol or drug abuse patient.[facility] Encounter Details Date Type Department Care Team (Late st Contact Info) Description 04/30/2019 Patient Msg Internal Medicine [address] [place] [address] [place] [address] [place] [address] RE: Appointment Request Social History Tobacco Use Types Packs/Day Years [...] as of this encounter Care Teams Marketing Program Coordinator Relationship Specialty Start Date End Date Precious Avendano DO PCP - General Family Medicine 07/05/16 04/22/20 documented as of this encounter
--- OUTSIDE RECORDS SUMMARY | 2025-01-07 15:21 | XMS_ITS | Encounter Summary ---
Author [email or web address] Email Address Author [email or web address] Email Address Preferred Language en Marital Status Single Confucianism Affiliation Unknown Race White Ethnic Group Not or Lati no Author Organization [facility] Address [address] [place] [address] Phone Care Team Providers Care Reproductive Surgeon Name Role Phone Dedra Mott MD Primary Care Provider [phone] Rosalind Pedersen MD Unavailable [phone] Peña Duncan SANE NURSE-FRONT END UI DEVELOPER Unavailable [phone] Monica Damian N SANE NURSE-FRONT END UI DEVELOPER Unavailable Monica Damian N SANE NURSE-FRONT END UI DEVELOPER Unavailable Monica Damian N SANE NURSE-FRONT END UI DEVELOPER Unavailable Humberto Wong RN Unavailable Unavailable Humberto Wong RN Unavailable Unavailable Laura Urrutia RN Unavailable Unavailabl e Laura Urrutia RN Unavailable Unavailabl e Encounter Details Date Type Department Care Team (Late st Contact Info) Description 02/25/2023 Patient Risk Score ACO Care Management [address] [place] [address] Social History Tobacco Use Types [...] Description 06/11/2025 3:00 PM EST Office Visit [facility] [address] [facility] [address] [place] [address] Kaden Diaz MD [address] [facility] [address] [place] [address] documented as of this encounter Visit Diagnoses Not on filedocumented in this encounter Additional Health Concerns Infection Onset Date Last Indicated Resolved Time COVID-19 Rule-Out 06/28/2023 06/28/2023 06/28/2023 6:01 AM EST RSV Rule-out 06/28/2023 06/28/2023 06/28/2023 6:01 AM EST COVID-19 Rule-Out 09/11/2023 09/11/2023 09/11/2023 6:38 AM EDT documented as of this encounter Care Teams Reproductive Surgeon Relationship Specialty Start Date End Date Dedra Mott MD [address] [id number] PCP - General 05/29/22 Peña Duncan APRN-FRONT END UI DEVELOPER [address] [facility] [place] [address] PCP - [facility] Medicaid PCP 03/25/23 Monica Damian SANE NURSE-FRONT END UI DEVELOPER [address] [facility] Department [place] [address] PCP - Eunice JOHNSTONO PCP 06/25/2309/22 Monica Damian SANE NURSE-FRONT END UI DEVELOPER [address] [facility] [place] [address] PCP - [facility] Medicaid PCP 12/24/23 4 Monica Damian, SANE NURSE-FRONT END UI DEVELOPER [address] [facility] Department [place] [address] PCP - Eunice JOHNSTONO PCP 05/25/24 Rosalind Pedersen MD [address] [place] [address] Consulting Physician Neurology 04/02/23 Humberto Wong, railway signal technicianIntramural Director 11/19/24 11/19/24 Humberto Wong, railway signal technicianIntramural Director 11/24/24 11/24/24 Laura Urrutia, railway signal technicianIntramural Director 11/26/24 11/26/24 Laura Urrutia, railway signal technicianIntramural Director 12/01/24 12/01/24 documented as of this encounter
--- OUTSIDE RECORDS SUMMARY | 2025-01-07 15:21 | XMS_ITS | Encounter Summary ---
Author Organization [facility] Address [address] [place] [address] Care Team Providers Care Senior Software Qa Engineer Name Role Phone OsmanikaceyRenae matthewa Primary Care Provider Unavail able Source Comments In the event this information is protected by the Federal Confidentiality of Alcohol and Drug AbusePatient Records regulations: The Federal rules restrict any use of the information to criminally investigate or prosecute any alcohol or drug abuse patient.[facility] Encounter Details Date Type Department Care Team (Late st Contact Info) Description 05/01/2019 Patient Msg Internal Medicine [address] [place] [address] Christel Petersen MD [address] [place], [place] [phone] RE: Appointment Request Social History Tobacco Use [...] documented as of this encounter Care Teams Senior Software Qa Engineer Relationship Specialty Start Date End Date Precious Avendano DO PCP - General Family Medicine 07/05/16 04/22/20 documented as of this encounter
--- OUTSIDE RECORDS SUMMARY | 2025-01-07 15:21 | XMS_ITS | Encounter Summary ---
Author Organization [facility] Address [address] [place] [address] Care Team Providers Care Electric Welder Name Role Phone OsmanikaceyRenae matthewa Primary Care Provider Unavail able Source Comments In the event this information is protected by the Federal Confidentiality of Alcohol and Drug AbusePatient Records regulations: The Federal rules restrict any use of the information to criminally investigate or prosecute any alcohol or drug abuse patient.[facility] Encounter Details Date Type Department Care Team (Late st Contact Info) Description 04/24/2019 Patient Msg Internal Medicine [address] [place] [address] Christel Petersen MD [address] [place], [place] [phone] RE: Appointment Request Social History Tobacco Use [...] documented as of this encounter Care Teams Electric Welder Relationship Specialty Start Date End Date Precious Avendano DO PCP - General Family Medicine 07/05/16 04/22/20 documented as of this encounter
--- OUTSIDE RECORDS SUMMARY | 2025-01-07 15:21 | XMS_ITS | Encounter Summary ---
Author Organization [facility] Address [address] [place] [address] Phone Care Team Providers Care Machine Scallop Cutter Name Role Phone Dedra Mott MD Primary Care Provider [phone] Rosalind Pedersen MD Unavailable [phone] Monica Damian AUTOMOBILE UPHOLSTERER-PARTNER MARKETING INTERN Unavailable Monica Damian AUTOMOBILE UPHOLSTERER-PARTNER MARKETING INTERN Unavailable Monica Damian AUTOMOBILE UPHOLSTERER-PARTNER MARKETING INTERN Unavailable Humberto Wong RN Unavailable Unavailable Humberto Wong RN Unavailable Unavailable Laura Urrutia RN Unavailable Unavailabl e Laura Urrutia RN Unavailable Unavailabl e Encounter Details Date Type Department Care Team (Late st Contact Info) Description 07/29/2023 Patient Risk Score ACO Care Management [address] [place] [phone] Social History Tobacco Use Types Packs/Day Years [...] Description 06/11/2025 3:00 PM EST Office Visit [facility] [address] [place] [phone] Kaden Diaz MD [address] [place] [address] documented as of this encounter Visit Diagnoses Not on filedocumented in this encounter Additional Health Concerns Infection Onset Date Last Indicated Resolved Time COVID-19 Rule-Out 09/11/2023 09/11/2023 09/11/2023 6:38 AM EDT Assessment Noted Time A fall risk assessment has been complete d for the patient 06/21/2023 2:31 PM EST documented as of this encounter Care Teams Machine Scallop Cutter Relationship Specialty Start Date End Date Dedra Mott MD [address] [id number] PCP - General 05/29/22 Monica Damian APRN-PARTNER MARKETING INTERN [address] [facility] Department [place] [address] PCP - Eunice ACO PCP 06/25/2309/22 Monica Damian AUTOMOBILE UPHOLSTERER-PARTNER MARKETING INTERN [address] [facility] Department [place] [address] PCP - FAST FOOD SALES ASSISTANT Medicaid PCP 12/24/2303/24/ 4 Monica Damian AUTOMOBILE UPHOLSTERER-PARTNER MARKETING INTERN [address] [facility] Department [place] [address] PCP - Eunice O PCP 05/25/24 Rosalind Pedersen MD [address] [place] [address] Consulting Physician Neurology 04/02/23 Humberto Wong, human machine interface engineerTelecommunications Administrator 11/19/24 11/19/24 Humberto Wong human machine interface engineerTelecommunications Administrator 11/24/24 11/24/24 Laura Urrutia, human machine interface engineerTelecommunications Administrator 11/26/24 11/26/24 Laura Urrutia, human machine interface engineerTelecommunications Administrator 12/01/24 12/01/24 documented as of this encounter
--- OUTSIDE RECORDS SUMMARY | 2025-01-07 15:21 | XMS_ITS | Encounter Summary ---
Author Organization [facility] Address [address] [place] [address] Care Team Providers Care Product Evangelist Name Role Phone OsmanikaceyPrecious matthew DO Primary Care Provider Unavail able Source Comments In the event this information is protected by the Federal Confidentiality of Alcohol and Drug AbusePatient Records regulations: The Federal rules restrict any use of the information to criminally investigate or prosecute any alcohol or drug abuse patient.[facility] Encounter Details Date Type Department Care Team (Late st Contact Info) Description 06/22/2018 Patient Msg Gastroenterology [address] [place] [address] [place] [address] [address] RE: Appointment Cancellation Request Social History Tobacco Use Types Packs/Day [...] documented as of this encounter Care Teams Product Evangelist Relationship Specialty Start Date End Date Precious Avendano DO PCP - General Family Medicine 07/05/16 04/22/20 documented as of this encounter
--- OUTSIDE RECORDS SUMMARY | 2025-01-07 15:21 | XMS_ITS | Encounter Summary ---
Author Organization [facility] Address [address] [place] [address] Phone Care Team Providers Care Lens Polisher Name Role Phone Dedra Mott MD Primary Care Provider [phone] Rosalind Pedersen MD Unavailable [phone] Monica Damian CORDWOOD CUTTER-CIGARETTE MACHINES MECHANIC Unavailable Humberto Wong RN Unavailable Unavailable Humberto Wong RN Unavailable Unavailable Laura Urrutia RN Unavailable Unavailabl e Laura Urrutia RN Unavailable Unavailabl e Encounter Details Date Type Department Care Team (Late st Contact Info) Description 10/26/2024 Patient Risk Score [facility] Care Management [address] [facility] [address] [place] [phone] Social History Tobacco Use Types Packs/Day Years [...] suspected to have Coronavirus/COVID-19? No / Unsure 10/27/2024 7:16 AM EDT documented as of this encounter Functional Status * Calculated C-SSRS Risk Score (Lifetime/Recent) Answer Date of Assessment Author No Risk Indicated 10/27/2024 7:16 AM EDT Dakota Tellez RN * [place] Suicide Severity Rating Scale (Screener/Recent Self-Report) Question Answer Date of Assessment Author 1. Wish to be (Past 1 Month) No 025 7:16 AM EDT Dakota Tellez RN 2. Non-Specific Active Suici katelyn Thoughts (Past 1 Month) No 10/27/2024 7:16 AM EDT Alexandra Tellez RN 6. Suicidal Behavior (Lifetime) No 7:16 AM EDT Dakota Tellez RN documented as of this encounter Plan of Treatment Upcoming Encounters Date Type Department Care Team (Late st Contact Info) Description 06/11/2025 3:00 PM EST Office Visit [address] [place] [phone] Kaden Diaz MD [address] [place] [address] [address] [place] [address] documented as of this encounter Visit Diagnoses Not on filedocumented in this encounter Additional Health Concerns Assessment Noted Time A fall risk assessment has been complete d for the patient 01/31/2024 9:06 AM EDT documented as of this encounter Care Teams Lens Polisher Relationship Specialty Start Date End Date Dedra Mott MD [address] [place] [address] PCP - General 05/29/22 Monica Damian APRN-CIGARETTE MACHINES MECHANIC [address] [facility] Department [place] [address] PCP - Eunice ROWE PCP 05/25/24 Rosalind Pedersen MD [address] [place] [address] Consulting Physician Neurology 04/02/23 Humberto Wong, fish net stringerVamp Creaser 11/19/24 11/19/24 Humberto Wong, fish net stringerVamp Creaser 11/24/24 11/24/24 Laura Urrutia, fish net stringerVamp Creaser 11/26/24 11/26/24 Laura Urrutia, fish net stringerVamp Creaser 12/01/24 12/01/24 documented as of this encounter
[2025-01-07 15:33] VITALS: O2SAT 99
[2025-01-07 15:35] LABS: Hematocrit 37.0 % (42.0-54.0); Hemoglobin 12.5 g/dL (14.0-18.0); Immature Granulocytes Abs Auto 0.02 10^3/uL (0.00-0.03); Immature Granulocytes Pct Auto 0.3 % (0.0-0.5); Lymphocytes Absolute Auto 1.2 10^3/uL (1.2-3.8); Mean Corpuscular HGB Conc 33.8 g/dL (29.9-35.2); Mean Corpuscular Hemoglobin 30.3 pg (25.9-34.0); Mean Corpuscular Volume 89.6 fL (80.0-94.0); Platelet Count 262 10^3/uL (150-450); Red Blood Count 4.13 10^6/uL (4.70-6.10); White Blood Count 7.6 10^3/uL (4.0-11.0)
--- NOTE | 2025-01-07 15:42 | XR_ITS ---
[facility] [place] [id number] Patient Name: SUDHAKAR ACUÑA MRN: [id number] date: 1985 Sex: M Assigned Patient Location: ED.MAIN Current Patient Location: ED.MAIN Accession/Order Number: [id number] Exam Date: 01/07/2025 15:53 Report Date: 01/07/2025 15:53 At the request of: CHATO JAMIL MD Procedure: XR chest 1V XR chest 1V 01/07/2025 3:42 PM SIGNS AND SYMPTOMS: ^CP ^Y PROTOCOL: Frontal radiograph of the chest COMPARISON: None FINDINGS: The trachea is midline. There is a pacer device in the right hemithorax with the leads extending superiorly. The heart and mediastinal structures are within normal limits. The lung parenchyma is clear. The bony thorax is intact. XR/XR chest 1V IMPRESSION: No acute cardiopulmonary pathology. Impression dictated by: Collin Vásquez M.D. 01/07/2025 3:53 PM Dictation Location: [place] [address] Electronically authenticated by: [id number] Y Date: 01/07/2025 15:53
[2025-01-07 15:59] LABS: Anion Gap 14.3; Blood Urea Nitrogen 11.0 mg/dL (7.0-18.0); Calcium 9.4 mg/dL (8.5-10.1); Carbon Dioxide 29.5 mmol/L (21.0-32.0); Chloride 103 mmol/L (98-107); Estimated GFR (African America >60 (>=60 mL/min/1.73m^2); Estimated GFR (Non-African Ame >60 (>=60 mL/min/1.73m^2); Glucose 108 mg/dL (74-106); Potassium 3.8 mmol/L (3.5-5.1); Sodium 143 mmol/L (136-145)
== END 2025-01-07 17:16 | disposition home or self-care (01) ==
PROVIDERS: Emergency Provider Emergency Medicine
DX: R07.9 Chest pain, unspecified (principal)
CPT/HCPCS: 36415; 71045; 80048; 84484; 85025; 85378; 93005; 99285

== ENCOUNTER 2025-01-16 18:23 | Emergency (ER) | payer OTHER, SELFPAY ==
[2025-01-16 18:27] VITALS: BP 142/80; PULSE 84; TEMP 36.6; O2SAT 99; BMI 21.8
--- NOTE | 2025-01-16 18:31 | ECG_ITS ---
[facility] Test Date: 2025-01-16 Pat Name: SUDHAKAR ACUÑA Department: Room: - Gender: Male Vp Of Customer Experience Strategy: : 1985 Requested By: [id number] Order Number: [id number] Reading MD: FRANCISCO MACEDO M.D. Measurements Intervals [place] Rate: 71 P: 90 AL: 128 QRS: 90 QRSD: 114 T: 90 QT: 400 QTc: 423 Interpretive Statements 1100 Sinus rhythm 2320 Nonspecific intraventricular conduction delay 0102 ARTIFACT PRESENT 9130 borderline ECG Compared to ECG 01/07/2025 15:15:59 Intraventricular conduction delay now present Electronically Signed On 01-17-2025 8:21:41 EDT by FRANCISCO MACEDO M.D.
--- NOTE | 2025-01-16 18:31 | XR_ITS ---
[facility] [place] [id number] Patient Name: SUDHAKAR ACUÑA MRN: [id number] date: 1985 Sex: M Assigned Patient Location: ER Current Patient Location: ER Accession/Order Number: [id number] Exam Date: 01/16/2025 19:15 Report Date: 01/16/2025 19:16 At the request of: BEKAH WHITTAKER Procedure: XR chest 1V Plain film chest Single view HISTORY: Chest pain COMPARISON: 01/07/2025 FINDINGS: SUPPORT DEVICES: None POSTSURGICAL CHANGES: Neurostimulator present. HEART: Within normal limits PULMONARY EMELY: Within normal limits MEDIASTINUM: Unremarkable LUNGS AND PLEURA: No acute lung process, pleural effusion or pneumothorax identified. BONY STRUCTURES: Intact ADDITIONAL FINDINGS None XR/XR chest 1V IMPRESSION: No acute process. Impression dictated by: Maurizio Washington M.D. 01/16/2025 7:16 PM Dictation Location: [facility] Electronically authenticated by: [id number] Y Date: 01/16/2025 19:16
--- NOTE | 2025-01-16 18:32 | ED.GENADUL1 ---
HPI HPI - General Adult General Chief complaint: Chest Pain Stated complaint: CHEST PAIN Time Seen by Provider: 01/16/25 18:27 Source: patient Mode of arrival: walk-in Limitations: no limitations History of Present Illness HPI narrative: Patient presents to the emergency department with a 3-day history of left-sided chest pain. Patient states that the pain has been intermittent and in varying locations but always on the left side of his chest. Patient does state that he has had an associated cough and is a smoker. Pain is mildly pleuritic in nature but also reproducible. Patient admits that he was in the emergency department 9 days ago for chest pain as well but states this feels different than last time. Patient denies any hemoptysis, abdominal pain or vomiting. Patient also states that he has a lesion on the bottom of his foot and was reading online that this can spread to the heart Onset (ago): day(s) (3) Location: Reports chest Radiation: Reports non-radiation Severity: moderate Pain Consistency: Reports intermittent Treatments prior to arrival: Reports none Related Data Home Medications ?Medication ?Instructions ?Recorded ?Confirmed atorvastatin 10 mg tablet 10 mg PO HS 01/07/25 01/16/25 buprenorphine 128 mg/0.36 mL 128 mg subcut Q28D 01/07/25 01/16/25 solution,ext.rel.subcutaneous syringe (Brixadi Monthly) buspirone 15 mg tablet 7.5 mg PO BID 01/07/25 01/16/25 cariprazine 3 mg capsule (Vraylar) 4 mg PO DAILY 01/07/25 01/16/25 gabapentin 300 mg capsule 300 mg PO TID 01/07/25 01/16/25 melatonin 10 mg capsule 10 mg PO HS PRN sleep 01/07/25 01/16/25 olanzapine 5 mg tablet 5 mg PO BID PRN agotation 01/07/25 01/16/25 trazodone 100 mg tablet 100 mg PO HS 01/07/25 01/16/25 Allergies Allergy/AdvReac Type Severity Reaction Status Date / Time Penicillins Allergy Severe Rash Verified 01/16/25 18:31 haloperidol (From Haldol) AdvReac Severe muscle Verified 01/16/25 18:31 stiffness Opioid HPI Opioid Management Most Recent Opioid Data: Last Pain Scale 6 01/07/25, 15:33 Review of Systems ROS Cardiovascular Reports: chest pain Respiratory Reports: cough and wheezing Gastrointestinal Denies: vomiting or diarrhea Integumentary/Breast Reports: rash (plantar left foot) Psychiatric Reports: anxiety PFSH PFSH Social History Little interest or pleasure in doing things: not at all Feeling down, depressed, or hopeless: not at all Exam Constitutional Vital Signs, click to edit/add: Last Vital Signs Temp 98 F 01/16/25 18:27 Pulse 84 01/16/25 18:27 Resp 16 01/16/25 19:27 BP 142/80 H 01/16/25 18:27 Pulse Ox 99 01/16/25 18:27 O2 Del Method Room Air 01/16/25 18:27 Documenting provider has reviewed patient's vital signs: yes Common normals: no apparent distress and oriented x3 General appearance: cooperative and anxious Orientation/consciousness: Yes awake, Yes oriented to person, Yes oriented to place and Yes oriented to time Chest Chest: tenderness Respiratory Auscultation: wheezes (inspiratory) inspiratory wheezes Cardio Common normals: regular rate, regular rhythm, S1 normal heart sound and S2 normal heart sound Jugular venous distention: no JVD Rate: regular rate Rhythm: regular rhythm GI Common normals: Normal to inspection, nondistended, normoactive bowel sounds present Course Vital Signs Vital signs: Vital Signs Temperature 98 F 01/16/25 18:27 Pulse Rate 84 01/16/25 18:27 Respiratory Rate 18 01/16/25 18:27 Blood Pressure 142/80 H 01/16/25 18:27 Pulse Oximetry 99 01/16/25 18:27 Oxygen Delivery Method Room Air 01/16/25 18:27 Temperature 98 F 01/16/25 18:27 Pulse Rate 84 01/16/25 18:27 Respiratory Rate 16 01/16/25 19:27 Blood Pressure 142/80 H 01/16/25 18:27 Pulse Oximetry 99 01/16/25 18:27 Oxygen Delivery Method Room Air 01/16/25 18:27 Medical Decision Making MDM Narrative Medical decision making narrative: Patient presented to the emergency department with recurrence of left-sided chest pain with a known history of anxiety and recent emergency department visits for the same. Pain was reproducible to palpation of the left anterior chest wall and physical exam does show some expiratory wheezes with no crackles or rales. Patient is PERC negative and review of patient's charting shows that when he was here with chest pain last week he had a negative D-dimer as well [place]remark[place] cardiac [place]. [id number], is skewed due to underlying nerve stimulator but no gross abnormalities are identified. Troponin is negative, chest x-ray clear and laboratory testing normal. I discussed with the patient the need to quit smoking given the wheezing on exam. Patient will be discharged with PCP follow Medical Records Medical records reviewed: Yes I reviewed the patient's medical records Lab Data Lab results reviewed: Yes I reviewed the patient's lab results Labs: Lab Results 01/16/25 Range/Units 18:39 WBC 8.3 (4.0-11.0) 10^3/uL RBC 4.31 L (4.70-6.10) 10^6/uL Hgb 12.9 L (14.0-18.0) g/dL Hct 39.1 L (42.0-54.0) % MCV 90.7 (80.0-94.0) fL MCH 29.9 (25.9-34.0) pg MCHC 33.0 (29.9-35.2) g/dL RDW 12.1 (11.0-15.0) % Plt Count 280 (150-450) 10^3/uL MPV 9.1 L (9.5-13.5) fL Neut % (Auto) 76.2 H (43.0-75.0) % Lymph % (Auto) 17.5 L (20.5-60.0) % [place] % (Auto) 4.8 (1.7-12.0) % Eos % (Auto) 0.7 L (0.9-7.0) % Baso % (Auto) 0.7 (0.2-2.0) % Neut # (Auto) 6.3 (1.4-6.5) 10^3/uL Lymph # (Auto) 1.5 (1.2-3.8) 10^3/uL [place] # (Auto) 0.4 (0.3-0.8) 10^3/uL Eos # (Auto) 0.1 (0.0-0.7) 10^3/uL Baso # (Auto) 0.1 (0.0-0.1) 10^3/uL Abs Immat Gran (auto) 0.01 (0.00-0.03) 10^3/uL Imm/Tot Granulo (auto) 0.1 (0.0-0.5) % Sodium 139 (136-145) mmol/L Potassium 3.5 (3.5-5.1) mmol/L Chloride 101 (98-107) mmol/L Carbon Dioxide 36.0 H (21.0-32.0) mmol/L Anion Gap 5.5 BUN 12.0 (7.0-18.0) mg/dL Creatinine 0.86 (0.70-1.30) mg/dL Est GFR ( Amer) >60 (>=60 mL/min/1.73m^2) Est GFR (Non-Af Amer) >60 (>=60 mL/min/1.73m^2) BUN/Creatinine Ratio 14.0 Glucose 94 (74-106) mg/dL Calcium 9.4 (8.5-10.1) mg/dL Troponin I High Sens 5.3 (4.0-76.1) pg/mL Imaging Data Chest x-ray: Radiologist's impression: ITS Impressions Chest X-Ray 01/16/25 18:31 IMPRESSION: No acute process. Impression dictated by: Maurizio Washington M.D. 01/16/2025 7:16 PM Dictation Location: [facility] Electronically authenticated by: [id number] Y Date: 01/16/2025 19:16 ECG Data Attestation: ?I have reviewed the pertinent ECG results. Prior ECG tracings: available for review Discharge Plan Discharge Chief Complaint: Chest Pain Clinical Impression: Atypical chest pain, Acute bronchospasm Patient Disposition: Home, Self-Care Time of Disposition Decision: 19:48 Prescriptions / Home Meds: No Action atorvastatin 10 mg tablet 10 mg PO HS Brixadi 128 mg/0.36 mL solution, extended rel syringe 128 mg SUBCUT Q28D buspirone 15 mg tablet 7.5 mg PO BID gabapentin 300 mg capsule 300 mg PO TID olanzapine 5 mg tablet 5 mg PO BID PRN (Reason: agotation) Vraylar 3 mg capsule 4 mg PO DAILY trazodone 100 mg tablet 100 mg PO HS melatonin 10 mg capsule 10 mg PO HS PRN (Reason: sleep) Print Language: Syriac Instructions: Chest Pain (ED), Bronchospasm (ED) Referrals: Physician,Non-Staff, MD [Primary Care Provider] - 1 week
[2025-01-16 18:45] LABS: Hematocrit 39.1 % (42.0-54.0); Hemoglobin 12.9 g/dL (14.0-18.0); Immature Granulocytes Abs Auto 0.01 10^3/uL (0.00-0.03); Immature Granulocytes Pct Auto 0.1 % (0.0-0.5); Lymphocytes Absolute Auto 1.5 10^3/uL (1.2-3.8); Mean Corpuscular HGB Conc 33.0 g/dL (29.9-35.2); Mean Corpuscular Hemoglobin 29.9 pg (25.9-34.0); Mean Corpuscular Volume 90.7 fL (80.0-94.0); Platelet Count 280 10^3/uL (150-450); Red Blood Count 4.31 10^6/uL (4.70-6.10); White Blood Count 8.3 10^3/uL (4.0-11.0)
--- NOTE | 2025-01-16 18:48 | PC.NURSE ---
pain comes and goes, worsens with deep breathing and pt reports a productive cough
[2025-01-16 19:03] LABS: Anion Gap 5.5; Blood Urea Nitrogen 12.0 mg/dL (7.0-18.0); Calcium 9.4 mg/dL (8.5-10.1); Carbon Dioxide 36.0 mmol/L (21.0-32.0); Chloride 101 mmol/L (98-107); Estimated GFR (African America >60 (>=60 mL/min/1.73m^2); Estimated GFR (Non-African Ame >60 (>=60 mL/min/1.73m^2); Glucose 94 mg/dL (74-106); Potassium 3.5 mmol/L (3.5-5.1); Sodium 139 mmol/L (136-145)
[2025-01-16 20:06] VITALS: BP 108/69; PULSE 86; O2SAT 99
== END 2025-01-16 20:08 | disposition home or self-care (01) ==
PROVIDERS: Physician Assistant; Emergency Provider Emergency Medicine
DX: R07.89 Other chest pain (principal); J98.01 Acute bronchospasm; F17.200 Nicotine dependence, unspecified, uncomplicated; F41.9 Anxiety disorder, unspecified
CPT/HCPCS: 36415; 71045; 80048; 84484; 85025; 93005; 99285